=== PATIENT | female | born 1945 | race African-American/Black ===

== ENCOUNTER → 2017-03-10 | Outpatient (CLI) | payer OTHER ==
[2016-07-10 16:43] VITALS: BP 142/69
[~2017-03-10] MED LIST: NS 100 ML IV 100 ML IV ONE
[2017-03-10 10:11] LABS: CREATININE 0.77 mg/dL (0.55-1.02)
--- NOTE | 2017-03-10 12:01 | CT ---
HISTORY: Generalized abdominal pain. Study: CT abdomen and pelvis with and without contrast Comparison: MRI abdomen dated October 27, 2016. Technique: Multiple axial images of the abdomen and pelvis were obtained from the lung bases to the pubic symph ysis before and after the administration of IV contrast. Dose reduction techniques including Automa jase Exposure Control (AEC) and adjustment of mA and kV were utilized. Findings: Bibasilar scarring versus atelectasis. Otherwise, the visualized portions of the lung bases are unre markable. Multiple simple appearing liver cysts are again seen. Nonspecific calcification is seen w ithin the hepatic dome. Otherwise, the liver, spleen, pancreas, kidneys, and adrenal glands are unre markable in their CT appearance. The gallbladder is unremarkable in its CT appearance. No significa nt mesenteric lymphadenopathy or stranding can be observed. No free fluid or free air is seen withi n the abdomen. Scattered colonic diverticula without evidence of diverticulitis. The large and smal l bowel are otherwise unremarkable. The visualized appendix appears normal. The uterus and ovaries a re surgically absent. The urinary bladder is grossly unremarkable. The bony structures are grossly intact. IMPRESSION: No CT evidence of acute abdominal/pelvic pathology. Reported By:
== END ==
LOC: RAD 09:35
PROVIDERS: ATTEND Internal Medicine Gastroenterology
DX: R10.84 Generalized abdominal pain (principal)
CPT/HCPCS: 36415; 74178; 82565; 84520; A4222

== ENCOUNTER 2017-03-11 00:24 | Inpatient (IN) | payer OTHER ==
--- NOTE | 2017-03-11 00:41 | DR.GENAD ---
HPI - PCP Primary Care Physician: SOL - HPI Comment HPI Comment: PATIENT HAVE INCREASING LOWER ABDOMINAL PAIN THIS EVENING. SHE HAD ABDOMINAL CT DONE TODAY FOR ABDOMINAL PAIN CURRENTLY BEING INVESTIGATED. DENIES DYSURIA. TONIGHT LOWER ABDOMEN PAINFUL RADIATING TO VAGINAL AND RECTAL AREA. - Complaint/Symptoms Chief Complaint Doctors Comments: LOWER ABDOMINAL PAIN. Chief Complaint:: LOWER ABDOIMNAL PAIN - Nurses notes reviewed Nurses Notes Review: Yes - Source History Provided: Patient - Mode of Arrival Mode of Arrival: Ambulatory - Timing Onset of Chief Complaint: 03/04/17 Came on: Gradually - Duration Duration: Constant Duration: Days - Severity Severity: Moderate PMH - PMH Past Medical History: Yes Past Medical History: Coronary Artery Disease, Dyslipidemia, Hypertension Past Surgical History: Yes Surgical History: Angioplasty/Stents, Appendectomy, Hysterectomy, Other Past Surgical History Comment: EYE SURGERY LUMPECTOMY - Family History History of Family Medical Conditions: Yes Family Medical History: Diabetes Mellitus, Cancer, [place], Coronary Artery Disease - Social History Does patient currently use any type of tobacco product: No Have you used tobacco products in the last 12 months: No Type of Tobacco Use: None Does any household member use tobacco: No Alcohol Use: None Do you use any recreational Drugs:: No Lives With: Spouse Lives Where: Home - infectious screening In the last 2 months have you had wt loss of >10#?: NO Have you had fever, night sweats or hemotysis?: No Have you traveled outside the country in the last 6 months?: No Isolation: Standard ROS - Review of Systems Constitutional: Weakness, Fatigue, Loss of Appetite. negative: Chills, Fever Eyes: No Symptoms Reported. negative: Eye Pain, Discharge ENTM: No Symptoms Reported Respiratoy: No Symptoms Reported. negative: Productive Cough, Non-Productive Cough, Short of Breath, Wheezing, Hemoptysis Cardiovascular: No Symptoms Reported Gastrointestinal/Abdominal: Abdominal Pain, Nausea Genitourinary: No Symptoms Reported Neurological: No Symptoms Reported Musculoskeletal: Muscle Pain Integumentary: No Symptoms Reported Hematologic/Lymphatic: No Symptoms Reported Endocrine: No Symptoms Reported All Other Systems: Reviewed and Negative PE - Vital Signs Vitals: Temperature 97.8 F Pulse Rate 66 Respiratory Rate 16 Blood Pressure [Left Arm] 120/63 Blood Pressure [Right Arm] 142/69 Blood Pressure 133/60 O2 Sat by Pulse Oximetry 100 - General Limitations: No Limitations General Appearance: Alert - Head Head Exam: Normal Inspection - Eyes Eye exam: Normal Appearance - ENT ENT Exam: Normal External Ear Exam External Ear Exam: Normal External Inspection TM/Canal Exam: Bilateral Normal Nose Exam: Normal Nose Exam Mouth Exam: Normal Inspection Throat Exam: Normal Inspection - Neck Neck Exam: Normal Inspection - Chest Chest Inspection: Symmetric Chest Wall Rise - Respiratory Respiratory Exam: Normal Lung Sounds Bilat Respiratory Exam: Bilateral Rhonchi, Lower Rhonchi - Cardiovascular Cardiovascular Exam: Regular Rate, Normal Rhythm, Normal Heart Sounds - Abdominal Exam Abdominal Exam: Normal Bowel Sounds, Soft, Tenderness Abdominal Tenderness: RLQ, LLQ, Suprapubic - Extremities Extremities Exam: Normal Inspection [facility] - Additional Information Additional Information Obtained From: Family - Differential Diagnosis Differential Diagnosis: ABDOMINAL PAIN, CHEST PAIN, UTI, KIDNEY STONE, MUSCULOSKELETAL PAIN Course - Treatment Treatment: MED FOR PAIN IN ED. - Reevaluation 1st: Improved - Consultation Consultation Comments: DISCUSS PATIENT WITH DR. HORTON. HE WILL ADMIT PATIENT. - Education/Counseling Education/Counseling: Patient, Family, Counseling Educated On: Diagnosis ROR - Labs Reviewed Laboratory Results Reviewed?: Yes Result Diagrams: 03/11/17 01:38 03/11/17 01:38 Laboratory: WBC 8.2 X10^3/uL (3.6-10.0) 03/11/17 01:38 RBC 4.21 X10^6/uL (3.5-5.4) 03/11/17 01:38 Hgb 12.6 g/dL (12.0-16.0) 03/11/17 01:38 Hct 37.2 % (36.0-47.0) 03/11/17 01:38 MCV 88.3 fL (80.0-100.0) 03/11/17 01:38 MCH 30.0 pg (27.0-34.0) 03/11/17 01:38 MCHC 33.9 g/dL (33.0-35.0) 03/11/17 01:38 RDW 13.8 % (11.6-16.5) 03/11/17 01:38 Plt Count 181 X10^3/uL (150.0-450.0) 03/11/17 01:38 MPV 7.8 fL (7.4-11.0) 03/11/17 01:38 Neut % 64.7 % (42.0-75.0) 03/11/17 01:38 Lymph % 25.5 % (21.0-51.0) 03/11/17 01:38 [place] % 8.0 % (0.0-13.0) 03/11/17 01:38 Eos % 1.3 % (0.9-2.9) 03/11/17 01:38 Baso % 0.5 % (0.2-1.0) 03/11/17 01:38 Neut # 5.3 x10^3/uL (2.2-4.8) H 03/11/17 01:38 Lymph # 2.1 X10^3/uL (1.3-2.9) 03/11/17 01:38 [place] # 0.7 x10^3/uL (0.3-0.8) 03/11/17 01:38 Eos # 0.1 x10^3/uL (0.0-0.2) 03/11/17 01:38 Baso # 0.0 X10^3/uL (0.0-0.1) 03/11/17 01:38 Absolute Nucleated RBC 0.0 /100WBC 03/11/17 01:38 Sodium 141 mmol/L (136-145) 03/11/17 01:38 Corrected Sodium 142 mmol/L (136-145) 03/11/17 01:38 Potassium 3.8 mmol/L (3.5-5.1) 03/11/17 01:38 Chloride 107 mmol/L (98-107) 03/11/17 01:38 Carbon Dioxide 27.9 mmol/L (21-32) 03/11/17 01:38 BUN 17 mg/dL (7-18) 03/11/17 01:38 Creatinine 0.77 mg/dL (0.55-1.02) 03/11/17 01:38 Est GFR (MDRD) Af Amer > 60 (>60) 03/11/17 01:38 Est GFR (MDRD) Non-Af > 60 (>60) 03/11/17 01:38 Glucose 139 mg/dL (65-99) H 03/11/17 01:38 Calcium 8.4 mg/dL (8.5-10.1) L 03/11/17 01:38 Corrected Calcium 9.1 mg/dL (8.5-10.1) 03/11/17 01:38 Total Bilirubin 0.60 mg/dL (0.2-1.0) 03/11/17 01:38 AST 17 Units/L (15-37) 03/11/17 01:38 ALT 21 Units/L (12-78) 03/11/17 01:38 Alkaline Phosphatase 115 Units/L (46-116) 03/11/17 01:38 Total Protein 6.6 g/dL (6.4-8.2) 03/11/17 01:38 Albumin 3.1 g/dL (3.4-5.0) L 03/11/17 01:38 Globulin 3.5 g/dL (2.5-4.5) 03/11/17 01:38 Albumin/Globulin Ratio 0.9 Ratio (1.1-2.1) L 03/11/17 01:38 Specimen Type Clean catch urine 03/11/17 01:50 Urine Color Yellow (YELLOW) 03/11/17 01:50 Urine Appearance Slightly hazy (CLEAR) 03/11/17 01:50 Urine pH 5.0 (5.0 - 8.0) 03/11/17 01:50 Ur Specific [place] 1.020 (1.000-1.030) 03/11/17 01:50 Urine Protein 1+ (NEGATIVE) 03/11/17 01:50 Urine Glucose (UA) Negative (NEGATIVE) 03/11/17 01:50 Urine Ketones Negative (NEGATIVE) 03/11/17 01:50 Urine Occult Blood 2+ (NEGATIVE) 03/11/17 01:50 Urine Nitrite Negative (NEGATIVE) 03/11/17 01:50 Urine Bilirubin Negative (NEGATIVE) 03/11/17 01:50 Urine Urobilinogen 2+ (NORMAL) 03/11/17 01:50 Ur Leukocyte Esterase 1+ (NEGATIVE) 03/11/17 01:50 Urine RBC 0-3 /HPF (NEGATIVE) 03/11/17 01:50 Urine WBC 2-4 /HPF (NEGATIVE) 03/11/17 01:50 Ur Squamous Epith Cells Few /HPF (NEGATIVE) 03/11/17 01:50 Urine Bacteria 1+ /HPF (NEGATIVE) 03/11/17 01:50 Urine Mucus Moderate /HPF (NEGATIVE) 03/11/17 01:50 Ur Culture Indicated? No/not indicated 03/11/17 01:50 - XRAY XRAY Interpreted by: Radiologist XRAY Findings: REPORT DISCUSS WITH PATIENT. - Diagnosis Discharge Problem: Abdominal pain, UTI (urinary tract infection) - Discharge Plan Disposition: ADMITTED INPATIENT Condition: Stable - Follow ups/Referrals - Instructions
[2017-03-11] MEDS ORDERED: MORPHINE SULFATE INJ 2 MG IVP ONE (01:19)
[2017-03-11] MEDS ORDERED: ZOFRAN INJ 4 MG VIAL IVP ONE (01:19)
[2017-03-11 01:45] LABS: BASOPHILS % (AUTO) 0.5 % (0.2-1.0); EOSINOPHILS # (AUTO) 0.1 x10^3/uL (0.0-0.2); EOSINOPHILS % (AUTO) 1.3 % (0.9-2.9); HEMATOCRIT 37.2 % (36.0-47.0); HEMOGLOBIN 12.6 g/dL (12.0-16.0); LYMPHOCYTES # (AUTO) 2.1 X10^3/uL (1.3-2.9); LYMPHOCYTES % (AUTO) 25.5 % (21.0-51.0); MEAN CORPUSCULAR HGB CONC 33.9 g/dL (33.0-35.0); MEAN CORPUSCULAR VOLUME 88.3 fL (80.0-100.0); MEAN PLATELET VOLUME 7.8 fL (7.4-11.0); MONOCYTES # (AUTO) 0.7 x10^3/uL (0.3-0.8); NEUTROPHILS # (AUTO) 5.3 x10^3/uL (2.2-4.8); NEUTROPHILS % (AUTO) 64.7 % (42.0-75.0); PLATELET COUNT 181 X10^3/uL (150.0-450.0); RED BLOOD COUNT 4.21 X10^6/uL (3.5-5.4); RED CELL DISTRIBUTION WIDTH 13.8 % (11.6-16.5); WHITE BLOOD COUNT 8.2 X10^3/uL (3.6-10.0)
[2017-03-11] MEDS ORDERED: MORPHINE SULFATE INJ 2 MG ONE (01:54)
[2017-03-11] MEDS ORDERED: ZOFRAN INJ 4 MG VIAL ONE (01:54)
[2017-03-11 01:55] LABS: BILIRUBIN,URINE NEGATIVE (NEGATIVE); BLOOD/HEMOGLOBIN,URINE 2+ (NEGATIVE); GLUCOSE, URINE NEGATIVE (NEGATIVE); KETONES,URINE NEGATIVE (NEGATIVE); LEUKOCYTE ESTERASE ,URINE 1+ (NEGATIVE); NITRITES,URINE NEGATIVE (NEGATIVE); PROTEIN,URINE 1+ (NEGATIVE); UROBILINOGEN,URINE 2+ (NORMAL)
[2017-03-11 01:57] LABS: ALANINE AMINOTRANSFERASE 21 Units/L (12-78); ALBUMIN 3.1 g/dL (3.4-5.0); ALKALINE PHOSPHATASE 115 Units/L (46-116); ASPARTATE AMINO TRANSFERASE 17 Units/L (15-37); BLOOD UREA NITROGEN 17 mg/dL (7-18); CALCIUM 8.4 mg/dL (8.5-10.1); CARBON DIOXIDE 27.9 mmol/L (21-32); CHLORIDE 107 mmol/L (98-107); COR CA(FOR HYPOALB) 9.1 mg/dL (8.5-10.1); COR NA(FOR HYPERGLY) 142 mmol/L (136-145); CREATININE 0.77 mg/dL (0.55-1.02); GLUCOSE 139 mg/dL (65-99); SODIUM 141 mmol/L (136-145); TOTAL PROTEIN 6.6 g/dL (6.4-8.2); eGFR BLACK RACES > 60 (>60); eGFR NON BLACK RACES > 60 (>60)
[2017-03-11] MEDS: NS 1000 ML 1,000 ML IV SCH ×3 (01:59→20:36)
[2017-03-11 02:01] LABS: APPEARANCE,URINE SLIGHTLY HAZY (CLEAR); BACTERIA,URINE 1+ /HPF (NEGATIVE); COLOR,URINE YELLOW (YELLOW); MUCUS,URINE MODERATE /HPF (NEGATIVE); RBC,URINE 0-3 /HPF (NEGATIVE); SQUAMOUS EPITHELIAL CELL,UR FEW /HPF (NEGATIVE)
[2017-03-11] MEDS ORDERED: TORADOL 15 MG VIAL IVP ONE (03:31)
[2017-03-11] MEDS ORDERED: CIPRO IV 200 MG PREMIX* 200 MG/100 ML BAG IV ONE (03:32)
[2017-03-11] MEDS ORDERED: TORADOL 15 MG VIAL ONE (03:35)
[2017-03-11] MEDS ORDERED: PEPCID 20 MG IV PREMIX* 50 ML IV PRN (06:29)
[2017-03-11] MEDS ORDERED: ZOFRAN INJ 4 MG VIAL IVP PRN (06:32)
[2017-03-11] MEDS: PEPCID 20 MG IV PREMIX* 20 MG/50 ML BAG IV SCH ×2 (08:44→20:35)
[2017-03-11] MEDS: CIPRO IV 400 MG PREMIX* 400 MG/200 ML IV.SOLN. IV SCH ×2 (08:45→20:35)
[2017-03-11] MEDS ORDERED: CIPRO IV 200 MG PREMIX* 200 MG/100 ML BAG IV SCH (09:00)
[2017-03-11] MEDS: BENTYL CAP 10 MG PO SCH ×4 (11:08→20:36)
[2017-03-11] MEDS ORDERED: ROBITUSSIN DM PO PRN (15:11)
[2017-03-11] MEDS: MORPHINE SULFATE INJ 2 MG IVP PRN (22:27)
[2017-03-12] MEDS: MORPHINE SULFATE INJ 2 MG IVP PRN ×3 (03:35→16:55)
[2017-03-12] MEDS: NS 1000 ML 1,000 ML IV SCH ×2 (04:17→22:00)
[2017-03-12 05:03] LABS: ALANINE AMINOTRANSFERASE 17 Units/L (12-78); ALBUMIN 2.7 g/dL (3.4-5.0); ALKALINE PHOSPHATASE 91 Units/L (46-116); ASPARTATE AMINO TRANSFERASE 16 Units/L (15-37); BLOOD UREA NITROGEN 7 mg/dL (7-18); CALCIUM 8.3 mg/dL (8.5-10.1); CARBON DIOXIDE 25.2 mmol/L (21-32); CHLORIDE 111 mmol/L (98-107); COR CA(FOR HYPOALB) 9.3 mg/dL (8.5-10.1); CREATININE 0.76 mg/dL (0.55-1.02); GLUCOSE 91 mg/dL (65-99); SODIUM 144 mmol/L (136-145); TOTAL PROTEIN 5.9 g/dL (6.4-8.2); eGFR BLACK RACES > 60 (>60); eGFR NON BLACK RACES > 60 (>60)
[2017-03-12 05:20] LABS: BASOPHILS % (AUTO) 0.4 % (0.2-1.0); EOSINOPHILS # (AUTO) 0.1 x10^3/uL (0.0-0.2); EOSINOPHILS % (AUTO) 1.2 % (0.9-2.9); HEMATOCRIT 33.6 % (36.0-47.0); HEMOGLOBIN 11.6 g/dL (12.0-16.0); LYMPHOCYTES # (AUTO) 1.7 X10^3/uL (1.3-2.9); LYMPHOCYTES % (AUTO) 29.1 % (21.0-51.0); MEAN CORPUSCULAR HEMOGLOBIN 30.3 pg (27.0-34.0); MEAN CORPUSCULAR HGB CONC 34.6 g/dL (33.0-35.0); MEAN CORPUSCULAR VOLUME 87.5 fL (80.0-100.0); MEAN PLATELET VOLUME 8.2 fL (7.4-11.0); MONOCYTES # (AUTO) 0.6 x10^3/uL (0.3-0.8); MONOCYTES % (AUTO) 10.2 % (0.0-13.0); NEUTROPHILS # (AUTO) 3.5 x10^3/uL (2.2-4.8); NEUTROPHILS % (AUTO) 59.1 % (42.0-75.0); PLATELET COUNT 162 X10^3/uL (150.0-450.0); RED BLOOD COUNT 3.84 X10^6/uL (3.5-5.4); RED CELL DISTRIBUTION WIDTH 13.6 % (11.6-16.5); WHITE BLOOD COUNT 5.9 X10^3/uL (3.6-10.0)
[2017-03-12 06:27] LABS: ERYTHROCYTE SEDIMENTATION RATE 28 MM/HOUR (0-20)
[2017-03-12 07:50] VITALS: BMI 29.2
[2017-03-12] MEDS: PEPCID 20 MG IV PREMIX* 20 MG/50 ML BAG IV SCH ×2 (09:16→21:55)
[2017-03-12] MEDS: CIPRO IV 400 MG PREMIX* 400 MG/200 ML IV.SOLN. IV SCH ×2 (09:16→21:55)
[2017-03-12] MEDS: BENTYL CAP 10 MG PO SCH ×4 (09:16→21:56)
[2017-03-12] MEDS: ASPIRIN EC 81 MG PO SCH (11:39)
[2017-03-12] MEDS: SYNTHROID 75 mcg TAB PO SCH (11:40)
[2017-03-12] MEDS: PLAVIX PO SCH (11:40)
--- NOTE | 2017-03-12 12:20 | DR.H&P ---
H&P - History & Physical for Day of: H&P Date: 03/11/17 - Chief Complaint Chief Complaint: abdominal pain - Allergies Allergies/Adverse Reactions: Allergies Allergy/AdvReac Type Severity Reaction Status Date / Time Hydrocodone [From Tussionex] Allergy Verified 12/25/15 12:46 Phenyltoloxamine Allergy Verified 12/25/15 12:46 [From Tussionex] - History of Present Illness History of Present Illness: Patient presented to the emergency room with complaint of abdominal pain that started in the lower abdomen and is getting worse and radiating down to vagina and rectum, she had an abdominal ct prior to arrival. The Abdomen CT with and without contrast showed no abnormalities. Labs were normal with the exception of Neut# 5.3, Glucose 139, Calcium 8.4, Albumin 3.1, Albumin/Globulin Ratio 0.9. Urinalysis shows 2+ Bld, 2+ Urobilinogen, 1+ Leuk, 1+ Bacteria. Patient was admitted with diagnosis of Abdominal pain, UTI, and enteritis. Patient started on IVF Fluids and Cipro 400mg IV Q12hr, Pepcid 20mg IV BID and morphine for pain. We are going to add some bentyl and see if this will give her some relief and follow up in the am with labs. Vital Signs 97.6, 76, 18, 95% on RA, 114/54 - Past Medical History Past Medical History: Coronary Artery Disease, Dyslipidemia, Hypertension Additional Medical History: Hx Breast Cancer, Cataracts, Bronchitis, Pneumonia, Constipation, Prior Blood Transfusion - Past Surgical History Surgical History: Angioplasty/Stents, Appendectomy, Hysterectomy, Other Additional Surgical History: S/P Left Breast Lumpectomy, Tumor removed from stomach, x2 - Family History Family Medical History: Diabetes Mellitus, Cancer, [place], Coronary Artery Disease - Social History Does patient currently use any type of tobacco product: No Have you used tobacco products in the last 12 months: No Type of Tobacco Use: None Does any household member use tobacco: No Alcohol Use: None Drug Use: None - Medications Home Medications: Aspirin [Aspirin Adult Low Dose] 1 tab PO DAILY 03/11/17 [History Confirmed 04/20] Clopidogrel Bisulfate [Clopidogrel] 1 tab PO DAILY 03/11/17 [History Confirmed 03/11/17] Levothyroxine Sodium [SYNTHROID 75 mcg *] 1 tab PO DAILY 03/11/17 [History Confirmed 03/11/17] Rosuvastatin Calcium [Rosuvastatin Calcium] 1 tab PO HS 03/11/17 [History Confirmed 03/11/17] - Review of Systems Constitutional: No Symptoms Reported Eyes: No Symptoms Reported ENT: No Symptoms Reported Respiratory: No Symptoms Reported Cardiovascular: No Symptoms Reported Gastrointestinal: Nausea, Abdominal Pain Genitourinary: No Symptoms Reported Musculoskeletal: No Symptoms Reported Skin: No Symptoms Reported Neurological: No Symptoms Reported - Physical Exam Vital Signs: Vital Signs 97.6, 76, 18, 95% on RA, 114/54 Oriented: Normal Eyes: Normal Ear: Normal Nose: Normal Throat: Normal Respiratory: Clear Throughout Cardiovascular: Normal : Normal Auscultation: Bowel Sounds: Increased Palpation: Normal Tenderness: RLQ, LLQ Skin: Normal Musculoskeletal: Normal Psychiatric: Normal Mood Description: Calm, Appropriate Affect: Normal Speech Pattern: Clear, Appropriate - Assessment/Plan (1) Abdominal pain Qualifiers: Abdominal location: A Status: Acute Plan: Morphine and bentyl for pain, continue to monitor (2) UTI (urinary tract infection) Qualifiers: Urinary tract infection type: U Hematuria presence: H Indwelling urinary catheter type: I Encounter type: E Status: Acute Plan: Cipro 400mg IV Q12hr
--- NOTE | 2017-03-12 12:22 | PCM.PROG ---
Progress Note - Progress Note for Day of Date: 03/12/17 - Subjective Subjective: Patient is a 71yo black female who was admitted to the hospital with abdominal pain, UTI, and enteritis. Patient states she is feeling somewhat better this am but is still have a good bit of abdominal pain. Upon physical examination patient is noted to have tenderness of the lower abdomen. We are going to continue her on antibiotics and consult Dr. Thompson. Labs are within normal limits with the exception of Hgb 11.6, Hct 33.6, Chloride 111, Calcium 8.3, CRP 10.20, Total Protein 5.9, Albumin 2.7, Albumin/Globulin Ratio 0.8. Vital Signs 98.0, 57, 18, 97% on RA, 137/63 - Past Medical Family Social History Past Med/Fam/Surg Hx: No changes since H&P Allergies: Allergies Hydrocodone [From Tussionex] Allergy (Verified 12/25/15 12:46) Phenyltoloxamine [From Tussionex] Allergy (Verified 12/25/15 12:46) - Review of Systems ROS: No change since H&P - Vital Signs and I&O's Vital Signs: Vital Signs 98.0, 57, 18, 97% on RA, 137/63 Intake and Output: Intake & Output 03/10/17 03/11/17 03/12/17 03/13/17 11:59 11:59 11:59 11:59 Intake Total 2220 Balance 2220 - Physical Exam Oriented: Normal Eyes: Normal Ear: Normal Nose: Normal Throat: Normal Cardiovascular: Normal : Normal Auscultation: Bowel Sounds: Increased Tenderness: RLQ, LLQ Skin: Normal Musculoskeletal: Normal Psychiatric: Normal Mood Description: Calm, Appropriate Affect: Normal Speech Pattern: Clear, Appropriate - Laboratory and Diagnostics Result Diagrams: 03/12/17 03:50 03/12/17 03:50 Labs: Laboratory WBC 5.9 X10^3/uL (3.6-10.0) 03/12/17 03:50 RBC 3.84 X10^6/uL (3.5-5.4) 03/12/17 03:50 Hgb 11.6 g/dL (12.0-16.0) L 03/12/17 03:50 Hct 33.6 % (36.0-47.0) L 03/12/17 03:50 MCV 87.5 fL (80.0-100.0) 03/12/17 03:50 MCH 30.3 pg (27.0-34.0) 03/12/17 03:50 MCHC 34.6 g/dL (33.0-35.0) 03/12/17 03:50 RDW 13.6 % (11.6-16.5) 03/12/17 03:50 Plt Count 162 X10^3/uL (150.0-450.0) 03/12/17 03:50 MPV 8.2 fL (7.4-11.0) 03/12/17 03:50 Neut % 59.1 % (42.0-75.0) 03/12/17 03:50 Lymph % 29.1 % (21.0-51.0) 03/12/17 03:50 [place] % 10.2 % (0.0-13.0) 03/12/17 03:50 Eos % 1.2 % (0.9-2.9) 03/12/17 03:50 Baso % 0.4 % (0.2-1.0) 03/12/17 03:50 Neut # 3.5 x10^3/uL (2.2-4.8) 03/12/17 03:50 Lymph # 1.7 X10^3/uL (1.3-2.9) 03/12/17 03:50 [place] # 0.6 x10^3/uL (0.3-0.8) 03/12/17 03:50 Eos # 0.1 x10^3/uL (0.0-0.2) 03/12/17 03:50 Baso # 0.0 X10^3/uL (0.0-0.1) 03/12/17 03:50 Absolute Nucleated RBC 0.1 /100WBC 03/12/17 03:50 ESR 28 MM/HOUR (0-20) H 03/12/17 03:50 Sodium 144 mmol/L (136-145) 03/12/17 03:50 Corrected Sodium TNP 03/12/17 03:50 Potassium 3.9 mmol/L (3.5-5.1) 03/12/17 03:50 Chloride 111 mmol/L (98-107) H 03/12/17 03:50 Carbon Dioxide 25.2 mmol/L (21-32) 03/12/17 03:50 BUN 7 mg/dL (7-18) 03/12/17 03:50 Creatinine 0.76 mg/dL (0.55-1.02) 03/12/17 03:50 Est GFR (MDRD) Af Amer > 60 (>60) 03/12/17 03:50 Est GFR (MDRD) Non-Af > 60 (>60) 03/12/17 03:50 Glucose 91 mg/dL (65-99) 03/12/17 03:50 Calcium 8.3 mg/dL (8.5-10.1) L 03/12/17 03:50 Corrected Calcium 9.3 mg/dL (8.5-10.1) 03/12/17 03:50 Total Bilirubin 0.70 mg/dL (0.2-1.0) 03/12/17 03:50 AST 16 Units/L (15-37) 03/12/17 03:50 ALT 17 Units/L (12-78) 03/12/17 03:50 Alkaline Phosphatase 91 Units/L (46-116) 03/12/17 03:50 C-Reactive Protein 10.20 mg/L (0-3.0) H 03/12/17 03:50 Total Protein 5.9 g/dL (6.4-8.2) L 03/12/17 03:50 Albumin 2.7 g/dL (3.4-5.0) L 03/12/17 03:50 Globulin 3.2 g/dL (2.5-4.5) 03/12/17 03:50 Albumin/Globulin Ratio 0.8 Ratio (1.1-2.1) L 03/12/17 03:50 Specimen Type Clean catch urine 03/11/17 01:50 Urine Color Yellow (YELLOW) 03/11/17 01:50 Urine Appearance Slightly hazy (CLEAR) 03/11/17 01:50 Urine pH 5.0 (5.0 - 8.0) 03/11/17 01:50 Ur Specific [place] 1.020 (1.000-1.030) 03/11/17 01:50 Urine Protein 1+ (NEGATIVE) 03/11/17 01:50 Urine Glucose (UA) Negative (NEGATIVE) 03/11/17 01:50 Urine Ketones Negative (NEGATIVE) 03/11/17 01:50 Urine Occult Blood 2+ (NEGATIVE) 03/11/17 01:50 Urine Nitrite Negative (NEGATIVE) 03/11/17 01:50 Urine Bilirubin Negative (NEGATIVE) 03/11/17 01:50 Urine Urobilinogen 2+ (NORMAL) 03/11/17 01:50 Ur Leukocyte Esterase 1+ (NEGATIVE) 03/11/17 01:50 Urine RBC 0-3 /HPF (NEGATIVE) 03/11/17 01:50 Urine WBC 2-4 /HPF (NEGATIVE) 03/11/17 01:50 Ur Squamous Epith Cells Few /HPF (NEGATIVE) 03/11/17 01:50 Urine Bacteria 1+ /HPF (NEGATIVE) 03/11/17 01:50 Urine Mucus Moderate /HPF (NEGATIVE) 03/11/17 01:50 Ur Culture Indicated? No/not indicated 03/11/17 01:50 - Plan (1) Abdominal pain Status: Acute Qualifiers: Abdominal location: A Plan: Morphine and bentyl for pain, continue to monitor, consult irfan (2) UTI (urinary tract infection) Status: Acute Qualifiers: Urinary tract infection type: U Hematuria presence: H Indwelling urinary catheter type: I Encounter type: E Plan: Cipro 400mg IV Q12hr
[2017-03-12] MEDS ORDERED: DULCOLAX SUPPOSITORY 10 MG RECTAL ONE (21:00)
[2017-03-12] MEDS ORDERED: PATIENT'S HOME MEDICATION (Rosuvastatin Calcium [Rosuvastatin Calcium] 1 TAB) PO SCH (21:00)
[2017-03-12] MEDS: PATIENT'S HOME MEDICATION PO SCH (21:56)
[2017-03-12] MEDS: CRESTOR TAB 10 MG PO SCH (21:58)
[2017-03-13] MEDS: MORPHINE SULFATE INJ 2 MG IVP PRN ×2 (00:59→19:14)
[2017-03-13 06:18] LABS: BASOPHILS % (AUTO) 0.4 % (0.2-1.0); EOSINOPHILS # (AUTO) 0.1 x10^3/uL (0.0-0.2); HEMOGLOBIN 12.3 g/dL (12.0-16.0); LYMPHOCYTES # (AUTO) 1.9 X10^3/uL (1.3-2.9); LYMPHOCYTES % (AUTO) 26.2 % (21.0-51.0); MEAN CORPUSCULAR HEMOGLOBIN 30.3 pg (27.0-34.0); MEAN CORPUSCULAR HGB CONC 34.3 g/dL (33.0-35.0); MEAN CORPUSCULAR VOLUME 88.3 fL (80.0-100.0); MEAN PLATELET VOLUME 8.3 fL (7.4-11.0); MONOCYTES # (AUTO) 0.6 x10^3/uL (0.3-0.8); MONOCYTES % (AUTO) 7.9 % (0.0-13.0); NEUTROPHILS # (AUTO) 4.6 x10^3/uL (2.2-4.8); NEUTROPHILS % (AUTO) 64.5 % (42.0-75.0); PLATELET COUNT 178 X10^3/uL (150.0-450.0); RED BLOOD COUNT 4.07 X10^6/uL (3.5-5.4); RED CELL DISTRIBUTION WIDTH 13.9 % (11.6-16.5); WHITE BLOOD COUNT 7.2 X10^3/uL (3.6-10.0)
[2017-03-13 06:26] LABS: ALANINE AMINOTRANSFERASE 18 Units/L (12-78); ALBUMIN 2.9 g/dL (3.4-5.0); ALKALINE PHOSPHATASE 102 Units/L (46-116); ASPARTATE AMINO TRANSFERASE 19 Units/L (15-37); BLOOD UREA NITROGEN 6 mg/dL (7-18); CALCIUM 8.6 mg/dL (8.5-10.1); CARBON DIOXIDE 25.9 mmol/L (21-32); CHLORIDE 108 mmol/L (98-107); COR CA(FOR HYPOALB) 9.5 mg/dL (8.5-10.1); CREATININE 0.73 mg/dL (0.55-1.02); GLUCOSE 98 mg/dL (65-99); SODIUM 142 mmol/L (136-145); TOTAL PROTEIN 6.7 g/dL (6.4-8.2); eGFR BLACK RACES > 60 (>60); eGFR NON BLACK RACES > 60 (>60)
[2017-03-13 06:51] LABS: ERYTHROCYTE SEDIMENTATION RATE 35 MM/HOUR (0-20)
[2017-03-13] MEDS: NS 1000 ML 1,000 ML IV SCH ×2 (06:54→15:12)
[2017-03-13] MEDS ORDERED: PATIENT'S HOME MEDICATION PO SCH (09:00)
[2017-03-13] MEDS: CIPRO IV 400 MG PREMIX* 400 MG/200 ML IV.SOLN. IV SCH ×2 (09:15→22:09)
[2017-03-13] MEDS: MILK OF MAGNESIA PO PRN ×2 (09:15→15:12)
[2017-03-13] MEDS: COLACE CAP 100 MG PO SCH ×2 (09:15→22:06)
[2017-03-13] MEDS: PATIENT'S HOME MEDICATION PO SCH ×4 (09:17→22:10)
[2017-03-13] MEDS: PEPCID 20 MG IV PREMIX* 20 MG/50 ML BAG IV SCH ×2 (09:30→22:10)
[2017-03-13] MEDS: BENTYL CAP 10 MG PO SCH ×4 (09:30→22:07)
[2017-03-13] MEDS: SYNTHROID 75 mcg TAB PO SCH (12:04)
[2017-03-13] MEDS: ASPIRIN EC 81 MG PO SCH (12:05)
[2017-03-13] MEDS: PLAVIX PO SCH (12:05)
[2017-03-13] MEDS ORDERED: MIRALAX POWDER (1 DOSE 17GM) PO SCH (21:00)
[2017-03-13] MEDS: CRESTOR TAB 10 MG PO SCH (22:06)
[2017-03-14] MEDS: NS 1000 ML 1,000 ML IV SCH ×2 (04:40→04:41)
[2017-03-14 06:19] LABS: BASOPHILS % (AUTO) 0.2 % (0.2-1.0); EOSINOPHILS # (AUTO) 0.1 x10^3/uL (0.0-0.2); EOSINOPHILS % (AUTO) 1.1 % (0.9-2.9); HEMATOCRIT 34.3 % (36.0-47.0); HEMOGLOBIN 11.7 g/dL (12.0-16.0); LYMPHOCYTES # (AUTO) 1.8 X10^3/uL (1.3-2.9); LYMPHOCYTES % (AUTO) 23.1 % (21.0-51.0); MEAN CORPUSCULAR HEMOGLOBIN 30.2 pg (27.0-34.0); MEAN CORPUSCULAR HGB CONC 34.3 g/dL (33.0-35.0); MEAN PLATELET VOLUME 8.2 fL (7.4-11.0); MONOCYTES # (AUTO) 0.7 x10^3/uL (0.3-0.8); MONOCYTES % (AUTO) 9.2 % (0.0-13.0); NEUTROPHILS # (AUTO) 5.2 x10^3/uL (2.2-4.8); NEUTROPHILS % (AUTO) 66.4 % (42.0-75.0); PLATELET COUNT 171 X10^3/uL (150.0-450.0); RED CELL DISTRIBUTION WIDTH 13.5 % (11.6-16.5); WHITE BLOOD COUNT 7.9 X10^3/uL (3.6-10.0)
[2017-03-14 06:24] LABS: ALANINE AMINOTRANSFERASE 18 Units/L (12-78); ALBUMIN 2.9 g/dL (3.4-5.0); ALKALINE PHOSPHATASE 101 Units/L (46-116); ASPARTATE AMINO TRANSFERASE 17 Units/L (15-37); BLOOD UREA NITROGEN 7 mg/dL (7-18); CALCIUM 8.7 mg/dL (8.5-10.1); CARBON DIOXIDE 23.8 mmol/L (21-32); CHLORIDE 108 mmol/L (98-107); COR CA(FOR HYPOALB) 9.6 mg/dL (8.5-10.1); CREATININE 0.72 mg/dL (0.55-1.02); GLUCOSE 94 mg/dL (65-99); SODIUM 142 mmol/L (136-145); TOTAL PROTEIN 6.6 g/dL (6.4-8.2); eGFR BLACK RACES > 60 (>60); eGFR NON BLACK RACES > 60 (>60)
[2017-03-14] MEDS: BENTYL CAP 10 MG PO SCH (09:27)
[2017-03-14] MEDS: COLACE CAP 100 MG PO SCH (09:27)
[2017-03-14] MEDS: CIPRO IV 400 MG PREMIX* 400 MG/200 ML IV.SOLN. IV SCH (09:28)
[2017-03-14] MEDS: PATIENT'S HOME MEDICATION PO SCH ×3 (10:10→10:12)
[2017-03-14 12:40] VITALS: BP 148/67
--- NOTE | 2017-03-17 13:58 | PCM.PROG ---
Progress Note - Progress Note for Day of Date: 03/13/17 - Subjective Subjective: Patient is a 71 yo female who was admitted with diagnosis of abdominal pain, UTI and eneritis. Patient is still having a good bit of pain this am. Dr Thompson was consulted and recommended to continue with oral antibiotic of Cipro and scheduled for colonoscopy and a low residue diet as. We are going to give her Miralax 17gm at bedtime, Mom 30ml PO QID PRN and Colace 100mg PO BID for constipation and see if this well help with some of her abdominal pain. Vital signs this am are 98.7, 62, 18, 93% on RA and 118/56. Labs are within normal limits with the exception of ESR 35, Chloride 108, BUN 6 , CRP 34.80, Albumin 2.9 and Albumin/Globulin Ratio of 0.8. We are going to follow up with her in the am with repeat labs. - Past Medical Family Social History Past Med/Fam/Surg Hx: No changes since H&P Allergies: Allergies Hydrocodone [From Tussionex] Allergy (Verified 12/25/15 12:46) Phenyltoloxamine [From Tussionex] Allergy (Verified 12/25/15 12:46) - Review of Systems ROS: No change since H&P - Vital Signs and I&O's Vital Signs: 98.7, 62, 18, 93% on RA and 118/56 Intake and Output: Intake & Output 03/15/17 03/16/17 03/17/17 03/18/17 11:59 11:59 11:59 11:59 Intake Total 560 Balance 560 - Physical Exam Oriented: Normal Eyes: Normal Ear: Normal Nose: Normal Throat: Normal Cardiovascular: Normal : Normal Auscultation: Bowel Sounds: Normal Palpation: Other (distended) Tenderness: RLQ, LLQ Skin: Normal Musculoskeletal: Normal Psychiatric: Normal Mood Description: Calm, Appropriate Affect: Normal Speech Pattern: Clear, Appropriate - Laboratory and Diagnostics Result Diagrams: 03/14/17 03:45 03/14/17 03:45 Labs: Laboratory WBC 7.9 X10^3/uL (3.6-10.0) 03/14/17 03:45 RBC 3.90 X10^6/uL (3.5-5.4) 03/14/17 03:45 Hgb 11.7 g/dL (12.0-16.0) L 03/14/17 03:45 Hct 34.3 % (36.0-47.0) L 03/14/17 03:45 MCV 88.0 fL (80.0-100.0) 03/14/17 03:45 MCH 30.2 pg (27.0-34.0) 03/14/17 03:45 MCHC 34.3 g/dL (33.0-35.0) 03/14/17 03:45 RDW 13.5 % (11.6-16.5) 03/14/17 03:45 Plt Count 171 X10^3/uL (150.0-450.0) 03/14/17 03:45 MPV 8.2 fL (7.4-11.0) 03/14/17 03:45 Neut % 66.4 % (42.0-75.0) 03/14/17 03:45 Lymph % 23.1 % (21.0-51.0) 03/14/17 03:45 [place] % 9.2 % (0.0-13.0) 03/14/17 03:45 Eos % 1.1 % (0.9-2.9) 03/14/17 03:45 Baso % 0.2 % (0.2-1.0) 03/14/17 03:45 Neut # 5.2 x10^3/uL (2.2-4.8) H 03/14/17 03:45 Lymph # 1.8 X10^3/uL (1.3-2.9) 03/14/17 03:45 [place] # 0.7 x10^3/uL (0.3-0.8) 03/14/17 03:45 Eos # 0.1 x10^3/uL (0.0-0.2) 03/14/17 03:45 Baso # 0.0 X10^3/uL (0.0-0.1) 03/14/17 03:45 Absolute Nucleated RBC 0.0 /100WBC 03/14/17 03:45 ESR 35 MM/HOUR (0-20) H 03/13/17 04:05 Sodium 142 mmol/L (136-145) 03/14/17 03:45 Corrected Sodium TNP 03/14/17 03:45 Potassium 3.8 mmol/L (3.5-5.1) 03/14/17 03:45 Chloride 108 mmol/L (98-107) H 03/14/17 03:45 Carbon Dioxide 23.8 mmol/L (21-32) 03/14/17 03:45 BUN 7 mg/dL (7-18) 03/14/17 03:45 Creatinine 0.72 mg/dL (0.55-1.02) 03/14/17 03:45 Est GFR (MDRD) Af Amer > 60 (>60) 03/14/17 03:45 Est GFR (MDRD) Non-Af > 60 (>60) 03/14/17 03:45 Glucose 94 mg/dL (65-99) 03/14/17 03:45 Calcium 8.7 mg/dL (8.5-10.1) 03/14/17 03:45 Corrected Calcium 9.6 mg/dL (8.5-10.1) 03/14/17 03:45 Total Bilirubin 0.90 mg/dL (0.2-1.0) 03/14/17 03:45 AST 17 Units/L (15-37) 03/14/17 03:45 ALT 18 Units/L (12-78) 03/14/17 03:45 Alkaline Phosphatase 101 Units/L (46-116) 03/14/17 03:45 C-Reactive Protein 34.80 mg/L (0-3.0) H 03/13/17 04:05 Total Protein 6.6 g/dL (6.4-8.2) 03/14/17 03:45 Albumin 2.9 g/dL (3.4-5.0) L 03/14/17 03:45 Globulin 3.7 g/dL (2.5-4.5) 03/14/17 03:45 Albumin/Globulin Ratio 0.8 Ratio (1.1-2.1) L 03/14/17 03:45 Specimen Type Clean catch urine 03/11/17 01:50 Urine Color Yellow (YELLOW) 03/11/17 01:50 Urine Appearance Slightly hazy (CLEAR) 03/11/17 01:50 Urine pH 5.0 (5.0 - 8.0) 03/11/17 01:50 Ur Specific [place] 1.020 (1.000-1.030) 03/11/17 01:50 Urine Protein 1+ (NEGATIVE) 03/11/17 01:50 Urine Glucose (UA) Negative (NEGATIVE) 03/11/17 01:50 Urine Ketones Negative (NEGATIVE) 03/11/17 01:50 Urine Occult Blood 2+ (NEGATIVE) 03/11/17 01:50 Urine Nitrite Negative (NEGATIVE) 03/11/17 01:50 Urine Bilirubin Negative (NEGATIVE) 03/11/17 01:50 Urine Urobilinogen 2+ (NORMAL) 03/11/17 01:50 Ur Leukocyte Esterase 1+ (NEGATIVE) 03/11/17 01:50 Urine RBC 0-3 /HPF (NEGATIVE) 03/11/17 01:50 Urine WBC 2-4 /HPF (NEGATIVE) 03/11/17 01:50 Ur Squamous Epith Cells Few /HPF (NEGATIVE) 03/11/17 01:50 Urine Bacteria 1+ /HPF (NEGATIVE) 03/11/17 01:50 Urine Mucus Moderate /HPF (NEGATIVE) 03/11/17 01:50 Ur Culture Indicated? No/not indicated 03/11/17 01:50 - Plan (1) Abdominal pain Status: Acute Qualifiers: Abdominal location: A Plan: Miralax 17gm at bedtime, Mom 30ml PO QID PRN and Colace 100mg PO BID (2) UTI (urinary tract infection) Status: Acute Qualifiers: Urinary tract infection type: U Hematuria presence: H Indwelling urinary catheter type: I Encounter type: E Plan: Cipro 400mg IV Q12hr
== END 2017-03-14 16:15 | disposition home or self-care (01) | DRG 690 ==
LOC: ER 00:24 → MED/SURG 07:20 → OBSVTOIN 03-13 08:00
PROVIDERS: ADMIT Internal Medicine; ATTEND Internal Medicine
DX: N39.0 Urinary tract infection, site not specified (principal); R10.84 Generalized abdominal pain; I25.10 Atherosclerotic heart disease of native coronary artery without angina pectoris; E78.2 Mixed hyperlipidemia; I10 Essential (primary) hypertension; K52.89 Other specified noninfective gastroenteritis and colitis; K21.9 Gastro-esophageal reflux disease without esophagitis; K59.09 Other constipation; K30 Functional dyspepsia
CPT/HCPCS: 36415; 80053; 81001; 85025; 85652; 86140; 96365; 96367; 96374; 96375; 99284; A4222; S0028; G0378; J0744; J2270; J2405

== ENCOUNTER → 2017-03-20 | Outpatient (CLI) | payer OTHER ==
[2017-03-14 12:40] VITALS: BP 148/67
--- NOTE | 2017-03-20 12:49 | CT ---
HISTORY: Right flank pain, hematuria Study: CT abdomen pelvis without contrast Comparison: March 10, 2017 Technique: Axial non contrast images with coronal and sagittal reformats. Dose reduction procedures were used with MA/kv adjusted for body size. Findings: The lung bases are clear. The liver, spleen, adrenal glands, and pancreas are within normal limits t o the limitations of an unenhanced examination. Multiple benign appearing hepatic cysts are present. Benign hepatic calcification is present. There is a question of a tiny gallstone present. This coul d be confirmed or excluded sonographically. The kidneys are unobstructed and without stones. No uret eral calculi are identified. The appendix is surgically absent by history. Calcific atherosclerotic changes present in a nondilated abdominal aorta. No enlarged intraperitoneal or retroperitoneal lymp hadenopathy is identified. There are no findings suggestive of diverticulitis or colitis. A moderate ly large amount of stool is present throughout the colon. Examination of the pelvis demonstrated no evidence for pelvic masses, pelvic fluid, or pelvic lymphadenopathy. No bladder abnormality is ident ified. 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 No other significant skeletal abnormalities are identified with the exception of compression of the superior endplates of L4 and L5 both a which are old. IMPRESSION: No evidence for obstructing renal or ureteral calculi Possible cholelithiasis. Correlation with sonography is recommended. Superior endplate compressions L4 and L5, old Multiple benign hepatic cysts Reported By:
== END ==
LOC: RAD 11:21
PROVIDERS: ATTEND Internal Medicine
DX: R31.9 Hematuria, unspecified (principal); R10.84 Generalized abdominal pain
CPT/HCPCS: 74176

== ENCOUNTER → 2017-10-26 | Outpatient (CLI) | payer OTHER ==
--- NOTE | 2017-10-26 11:21 | MRI ---
HISTORY: Low back pain, radiating into bilateral lower extremities, history of breast cancer Study: MRI lumbar spine without contrast Comparison: CT lumbar spine performed on 11/27/2014 Technique: Multisequence, multiplanar imaging of the lumbar spine was performed without the administration of IV contrast. Findings: Imaging of the lumbar spine demonstrates normal vertebral alignment. There is no spondylolisthesis. T here are chronic compression fractures involving the L4 and L5 superior endplates with associated lar ge Schmorl's nodes. No acute or early subacute compression fracture is identified within the lumbar s pine. Multilevel disc desiccation is noted. There is mild loss of disc space height at the L2-L3 leve l. Mild degenerative endplate changes with associated very mild reactive edema are noted at the L2-L3 level as well. The conus terminates somewhat low at the L2-L3 level. Evaluation of the pre and parav ertebral soft tissues demonstrates a lobulated hepatic cyst within the right hepatic lobe. T12-L1: At the T12-L1 level there is a tiny right paracentral disc protrusion without canal stenosis or neuroforaminal compromise. L1-L2: At the L1-L2 level there is mild facet hypertrophy without canal stenosis or neuroforaminal co mpromise. L2-L3: At the L2-L3 level there is a very mild broad-based disc bulge as well as facet hypertrophy, r esulting in no significant canal stenosis or neuroforaminal compromise. L3-L4: At the L3-L4 level there is facet hypertrophy as well as mild broad-based disc ridging, result ing in minimal bilateral neuroforaminal compromise but no significant canal stenosis. L4-L5: At the L4-L5 level there is facet hypertrophy and minimal disc ridging, resulting in minimal n euroforaminal compromise on the right but no significant canal stenosis. L5-S1: At the L5-S1 level there is facet hypertrophy without significant canal stenosis or neuroforam inal compromise. IMPRESSION: 1. Multilevel very mild degenerative disc disease and multilevel facet hypertrophy, resulting in mini mal neuroforaminal compromise at the L3-L4 and L4-L5 levels. 2. Chronic compression deformities involving the L4 and L5 superior endplates. Reported By:
== END | disposition home or self-care (01) | DRG 552 ==
LOC: RAD 09:29
PROVIDERS: ATTEND Orthopaedic Surgery
DX: M47.22 Other spondylosis with radiculopathy, cervical region (principal); M51.36 Other intervertebral disc degeneration, lumbar region
CPT/HCPCS: 72148

== ENCOUNTER 2019-05-16 13:42 | Inpatient (IN) ==
[2019-05-16] MEDS ORDERED: TUSSIONEX PENNKINETIC SUSP PO PRN (15:06)
[2019-05-16 17:10] LABS: BASOPHILS % (AUTO) 0.5 % (0.2-1.0); EOSINOPHILS # (AUTO) 0.1 x10^3/uL (0.0-0.2); EOSINOPHILS % (AUTO) 2.2 % (0.9-2.9); HEMATOCRIT 40.5 % (36.0-47.0); HEMOGLOBIN 13.8 g/dL (12.0-16.0); LYMPHOCYTES # (AUTO) 1.7 X10^3/uL (1.3-2.9); LYMPHOCYTES % (AUTO) 30.8 % (21.0-51.0); MEAN CORPUSCULAR HEMOGLOBIN 30.5 pg (27.0-34.0); MEAN CORPUSCULAR VOLUME 89.7 fL (80.0-100.0); MEAN PLATELET VOLUME 7.3 fL (7.4-11.0); MONOCYTES # (AUTO) 0.4 x10^3/uL (0.3-0.8); MONOCYTES % (AUTO) 7.6 % (0.0-13.0); NEUTROPHILS # (AUTO) 3.2 x10^3/uL (2.2-4.8); NEUTROPHILS % (AUTO) 58.9 % (42.0-75.0); PLATELET COUNT 229 X10^3/uL (150.0-450.0); RED BLOOD COUNT 4.52 X10^6/uL (3.5-5.4); RED CELL DISTRIBUTION WIDTH 13.8 % (11.6-16.5); WHITE BLOOD COUNT 5.5 X10^3/uL (3.6-10.0)
[2019-05-16 17:26] LABS: ALANINE AMINOTRANSFERASE 15 Units/L (12-78); ALBUMIN 3.3 g/dL (3.4-5.0); ALKALINE PHOSPHATASE 104 Units/L (46-116); ASPARTATE AMINO TRANSFERASE 18 Units/L (15-37); BLOOD UREA NITROGEN 15 mg/dL (7-18); CALCIUM 8.8 mg/dL (8.5-10.1); CARBON DIOXIDE 27.5 mmol/L (21-32); CHLORIDE 106 mmol/L (98-107); COR CA(FOR HYPOALB) 9.4 mg/dL (8.5-10.1); COR NA(FOR HYPERGLY) 142 mmol/L (136-145); CREATININE 1.01 mg/dL (0.55-1.02); SODIUM 142 mmol/L (136-145); TOTAL PROTEIN 7.4 g/dL (6.4-8.2); eGFR NON BLACK RACES 57 (>60)
--- NOTE | 2019-05-16 18:15 | RAD ---
HISTORY: Pneumonia, cough Study: Two views of the chest Comparison: October 21, 2018 Findings: The trachea is midline. The cardiac silhouette is unremarkable. Atelectasis and/or infiltrate are noted within the left lower lobe. A small left-sided pleural effusion cannot be excluded. IMPRESSION: 1. Left basilar airspace disease as noted above. Reported By:
[2019-05-16] MEDS ORDERED: NS 1/2 1000 ML IV 1,000 ML ONE (18:25)
[2019-05-16] MEDS: ROBITUSSIN DM PO SCH ×2 (18:39→20:46)
[2019-05-16] MEDS: NS 1/2 1000 ML IV 1,000 ML IV SCH (18:39)
[2019-05-16] MEDS: DUONEB 0.5 MG/3 MG NEB SCH ×2 (19:20→21:06)
[2019-05-16] MEDS: LEVAQUIN PREMIX IV 750 MG 750 MG/150 ML BAG IV SCH (20:46)
[2019-05-17 01:00] VITALS: BMI 32.2
[2019-05-17] MEDS: NS 1/2 1000 ML IV 1,000 ML IV SCH ×3 (05:18→20:00)
[2019-05-17 05:43] LABS: BASOPHILS % (AUTO) 0.6 % (0.2-1.0); EOSINOPHILS # (AUTO) 0.1 x10^3/uL (0.0-0.2); EOSINOPHILS % (AUTO) 2.2 % (0.9-2.9); HEMATOCRIT 34.9 % (36.0-47.0); HEMOGLOBIN 12.2 g/dL (12.0-16.0); LYMPHOCYTES # (AUTO) 1.5 X10^3/uL (1.3-2.9); LYMPHOCYTES % (AUTO) 27.4 % (21.0-51.0); MEAN CORPUSCULAR HEMOGLOBIN 31.1 pg (27.0-34.0); MEAN CORPUSCULAR HGB CONC 34.9 g/dL (33.0-35.0); MEAN CORPUSCULAR VOLUME 89.2 fL (80.0-100.0); MEAN PLATELET VOLUME 7.6 fL (7.4-11.0); MONOCYTES # (AUTO) 0.7 x10^3/uL (0.3-0.8); MONOCYTES % (AUTO) 12.7 % (0.0-13.0); NEUTROPHILS # (AUTO) 3.2 x10^3/uL (2.2-4.8); NEUTROPHILS % (AUTO) 57.1 % (42.0-75.0); PLATELET COUNT 193 X10^3/uL (150.0-450.0); RED BLOOD COUNT 3.91 X10^6/uL (3.5-5.4); RED CELL DISTRIBUTION WIDTH 13.7 % (11.6-16.5); WHITE BLOOD COUNT 5.6 X10^3/uL (3.6-10.0)
[2019-05-17 05:57] LABS: ALANINE AMINOTRANSFERASE 11 Units/L (12-78); ALBUMIN 2.7 g/dL (3.4-5.0); ALKALINE PHOSPHATASE 91 Units/L (46-116); ASPARTATE AMINO TRANSFERASE 15 Units/L (15-37); BLOOD UREA NITROGEN 16 mg/dL (7-18); CALCIUM 8.1 mg/dL (8.5-10.1); CARBON DIOXIDE 23.8 mmol/L (21-32); CHLORIDE 108 mmol/L (98-107); COR CA(FOR HYPOALB) 9.1 mg/dL (8.5-10.1); CREATININE 0.78 mg/dL (0.55-1.02); SODIUM 142 mmol/L (136-145); TOTAL PROTEIN 6.2 g/dL (6.4-8.2); eGFR NON BLACK RACES > 60 (>60)
--- NOTE | 2019-05-17 06:08 | RAD ---
History: Shortness of breath Comparison: 05/16/2019. Findings: Cardiac silhouette and pulmonary vasculature are within normal limits. Lungs are clear. No pneumothorax or pleural effusion. No acute osseous findings. Conclusion: No acute chest findings. Reported By:
[2019-05-17] MEDS: DUONEB 0.5 MG/3 MG NEB SCH ×4 (08:56→20:44)
[2019-05-17] MEDS: SINGULAIR TAB 10 MG PO SCH (09:12)
[2019-05-17] MEDS: ROBITUSSIN DM PO SCH ×4 (09:12→22:00)
[2019-05-17] MEDS: PROTONIX TAB 40 MG PO SCH (09:12)
[2019-05-17] MEDS: LEVAQUIN PREMIX IV 750 MG 750 MG/150 ML BAG IV SCH (09:12)
[2019-05-17] MEDS: PLAVIX PO SCH (09:13)
[2019-05-17] MEDS: ZANTAC PO SCH ×2 (09:14→21:45)
[2019-05-17] MEDS: AZILSARTAN MEDOXOMIL 80 MG PO SCH (09:15)
[2019-05-17] MEDS ORDERED: NS 1/2 1000 ML IV 1,000 ML ONE (09:17)
[2019-05-17] MEDS: SYNTHROID 75 mcg TAB PO SCH (09:18)
--- NOTE | 2019-05-17 10:18 | DR.UPDATE ---
H&P Update History and Physical Update: History and Physical reviewed and patient examined. Changes noted: Yes with the following: PRESENTED TO THE OFFICE TODAY DUE TO COMPLAINTS OF PERSISTENT, PRODUCTIVE COUGH X 3 WEEKS. SHE REPORTS RECEIVING TWO INJECTIONS OF SOLU-MEDROL, AND THREE INJECTIONS OF ROCEPHIN IN THE OFFICE WITHOUT IMPROVEMENT IN SYMPTOMS. WE ADMITTED PATIENT FOR FURTHER EVALUATION AND TREATMENT OF COMMUNITY AQUIRED PNEUMONIA. ON ADMISSION, TO THE HOSPITAL, VITALS WERE 97.0-88-20-96%-167/74. LABS WERE OBTAINED. ABNORMAL LAB VALUES INCLUDE THE FOLLOWING: GLUCOSE 111, ALBUMIN 3.3. BLOOD CULTURES AND SPUTUM CULTURES WERE OBTAINED. A CHEST XRAY WAS OBTAINED AND REVEALED: LEFT BASILAR AIRSPACE DISEASE. SHE WILL BE STARTED ON THE PNEUMONIA PROTOCOL WITH LEVAQUIN 750MG IV DAILY, RESPIRATORY TREATMENTS, SUPPLEMENTAL OXYGEN, AND 1/2NS AT 75ML/HR. OTHERWISE, WE PLAN TO FOLLOW UP WITH AM LABS AND CHEST XRAY AND CONTINUE TO MONITOR.
--- NOTE | 2019-05-17 19:44 | PCM.PROG ---
Progress Note - Progress Note for Day of Date of Exam: 05/17/19 - Subjective Subjective: IS A 73 YEAR OLD PATIENT OF OURS WHO WAS ADMITTED FOR COMMUNITY ACQUIRED PNEUMONIA, FAILED OUTPATIENT TREATMENT. TODAY, SHE IS ALERT AND ORIENTED, LYING IN BED ON MORNING ROUNDS. SHE CONTINUE WITH COMPLAINTS OF A PRODUCTIVE COUGH AND SHORTNESS OF BREATH. ON EXAMINATION, BILATERAL LUNGS ARE NOTED WITH SCATTERED WHEEZING AND RHONCHI THROUGHOUT. ABDOMEN IS ROUND, SOFT, AND NON-TENDER WITH NORMAL BOWEL SOUNDS NOTED IN ALL QUADRANTS. HER VITALS THIS MORNING ARE: 98.3-75-20-97%-136/63. LABS WERE OBTAINED. ABNORMAL LAB VALUES INCLUDE THE FOLLOWING: GLUCOSE 111, ALBUMIN 3.3. SPUTUM AND BLOOD CULTURES ARE PENDING. A CHEST XRAY WAS OBTAINED AND REVEALED NO ACUTE CHEST FINDINGS. SHE IS CURRENTLY RECEIVING LEVAQUIN 750MG IV DAILY, RESPIRATORY TREATMENTS, AND SUPPLEMENTAL OXYGEN. WE WILL CONTINUE WITH CURRENT PLAN FO CARE AND RESUME HOME MEDICATIONS TODAY. OTHERWISE, WE PLAN TO FOLLOW UP WITH AM LABS AND XRAY AND CONTINUE TO MONITOR. - Past Medical Family Social History Past Med/Fam/Surg Hx: No changes since H&P Allergies: Allergies hydrocodone Allergy (Unknown, Verified 05/17/19 01:05) From Tussionex phenyltoloxamine Allergy (Unknown, Verified 05/17/19 01:05) From Tussionex - Review of Systems ROS: No change since H&P - Vital Signs and I&O's Vital Signs: Temperature 98.1 F Pulse Rate [Right Posterior 87 Tibial] Pulse Rate [Left Radial] 85 Pulse Rate 88 Respiratory Rate 18 Blood Pressure [Right Calf] 137/67 Blood Pressure [Left Arm] 167/74 Blood Pressure [Right Arm] 156/68 Blood Pressure 148/67 O2 Sat by Pulse Oximetry 96 Intake and Output: Intake & Output 05/15/19 05/16/19 05/17/19 05/18/19 11:59 11:59 11:59 11:59 Intake Total 1228 / 1228 700 / 700 Balance 1228 / 1228 700 / 700 - Physical Exam Oriented: Normal Eyes: Normal Ear: Normal Nose: Normal Throat: Normal Respiratory: Generalized, Wheezes, Rhonchi Cardiovascular: Normal : Normal Auscultation: Bowel Sounds: Normal Palpation: Normal Tenderness: Normal Skin: Normal Musculoskeletal: Normal Psychiatric: Normal Mood Description: Calm Affect: Normal Speech Pattern: Clear, Appropriate - Laboratory and Diagnostics Result Diagrams: 05/17/19 05:21 05/17/19 05:21 Labs: 05/16/19 21:10 Sputum - Expectorated Sputum - Final Laboratory WBC 5.6 X10^3/uL (3.6-10.0) 05/17/19 05:21 RBC 3.91 X10^6/uL (3.5-5.4) 05/17/19 05:21 Hgb 12.2 g/dL (12.0-16.0) 05/17/19 05:21 Hct 34.9 % (36.0-47.0) L 05/17/19 05:21 MCV 89.2 fL (80.0-100.0) 05/17/19 05:21 MCH 31.1 pg (27.0-34.0) 05/17/19 05:21 MCHC 34.9 g/dL (33.0-35.0) 05/17/19 05:21 RDW 13.7 % (11.6-16.5) 05/17/19 05:21 Plt Count 193 X10^3/uL (150.0-450.0) 05/17/19 05:21 MPV 7.6 fL (7.4-11.0) 05/17/19 05:21 Neut % (Auto) 57.1 % (42.0-75.0) 05/17/19 05:21 Lymph % (Auto) 27.4 % (21.0-51.0) 05/17/19 05:21 [place] % (Auto) 12.7 % (0.0-13.0) 05/17/19 05:21 Eos % (Auto) 2.2 % (0.9-2.9) 05/17/19 05:21 Baso % (Auto) 0.6 % (0.2-1.0) 05/17/19 05:21 Neut # (Auto) 3.2 x10^3/uL (2.2-4.8) 05/17/19 05:21 Lymph # (Auto) 1.5 X10^3/uL (1.3-2.9) 05/17/19 05:21 [place] # (Auto) 0.7 x10^3/uL (0.3-0.8) 05/17/19 05:21 Eos # (Auto) 0.1 x10^3/uL (0.0-0.2) 05/17/19 05:21 Baso # (Auto) 0.0 X10^3/uL (0.0-0.1) 05/17/19 05:21 Absolute Nucleated RBC 0.1 /100WBC 05/17/19 05:21 Sodium 142 mmol/L (136-145) 05/17/19 05:21 Corrected Sodium TNP 05/17/19 05:21 Potassium 4.0 mmol/L (3.5-5.1) 05/17/19 05:21 Chloride 108 mmol/L (98-107) H 05/17/19 05:21 Carbon Dioxide 23.8 mmol/L (21-32) 05/17/19 05:21 BUN 16 mg/dL (7-18) 05/17/19 05:21 Creatinine 0.78 mg/dL (0.55-1.02) 05/17/19 05:21 Est GFR (MDRD) Af Amer > 60 (>60) 05/17/19 05:21 Est GFR (MDRD) Non-Af > 60 (>60) 05/17/19 05:21 Glucose 94 mg/dL (65-99) 05/17/19 05:21 Calcium 8.1 mg/dL (8.5-10.1) L 05/17/19 05:21 Corrected Calcium 9.1 mg/dL (8.5-10.1) 05/17/19 05:21 Total Bilirubin 0.40 mg/dL (0.2-1.0) 05/17/19 05:21 AST 15 Units/L (15-37) 05/17/19 05:21 ALT 11 Units/L (12-78) L 05/17/19 05:21 Alkaline Phosphatase 91 Units/L (46-116) 05/17/19 05:21 Total Protein 6.2 g/dL (6.4-8.2) L 05/17/19 05:21 Albumin 2.7 g/dL (3.4-5.0) L 05/17/19 05:21 Globulin 3.5 g/dL (2.5-4.5) 05/17/19 05:21 Albumin/Globulin Ratio 0.8 Ratio (1.1-2.1) L 05/17/19 05:21 - Plan (1) Community acquired pneumonia Status: Acute Qualifiers: Laterality: left Lung location: lower lobe of lung Qualified Code(s): J18.1 - Lobar pneumonia, unspecified organism Plan: IV LEVAQUIN, RESPIRATORY TREATMENTS, SUPPLEMENTAL OXYGEN, CONTINUE TO MONITOR
[2019-05-17] MEDS: ASPIRIN EC 81 MG PO SCH (21:45)
[2019-05-18] MEDS ORDERED: NS 1/2 1000 ML IV 1,000 ML ONE ×2 (05:13→20:01)
[2019-05-18 05:24] LABS: BASOPHILS % (AUTO) 0.3 % (0.2-1.0); EOSINOPHILS # (AUTO) 0.1 x10^3/uL (0.0-0.2); EOSINOPHILS % (AUTO) 2.3 % (0.9-2.9); HEMOGLOBIN 12.2 g/dL (12.0-16.0); LYMPHOCYTES # (AUTO) 1.6 X10^3/uL (1.3-2.9); LYMPHOCYTES % (AUTO) 28.5 % (21.0-51.0); MEAN CORPUSCULAR HEMOGLOBIN 30.8 pg (27.0-34.0); MEAN CORPUSCULAR VOLUME 90.6 fL (80.0-100.0); MEAN PLATELET VOLUME 7.6 fL (7.4-11.0); MONOCYTES # (AUTO) 0.7 x10^3/uL (0.3-0.8); MONOCYTES % (AUTO) 11.8 % (0.0-13.0); NEUTROPHILS # (AUTO) 3.3 x10^3/uL (2.2-4.8); NEUTROPHILS % (AUTO) 57.1 % (42.0-75.0); PLATELET COUNT 217 X10^3/uL (150.0-450.0); RED BLOOD COUNT 3.97 X10^6/uL (3.5-5.4); RED CELL DISTRIBUTION WIDTH 13.8 % (11.6-16.5); WHITE BLOOD COUNT 5.8 X10^3/uL (3.6-10.0)
[2019-05-18] MEDS: NS 1/2 1000 ML IV 1,000 ML IV SCH ×2 (05:25→20:07)
[2019-05-18] MEDS ORDERED: TYLENOL 325 MG TAB PO PRN (05:34)
[2019-05-18 05:38] LABS: ALANINE AMINOTRANSFERASE 11 Units/L (12-78); ALBUMIN 2.8 g/dL (3.4-5.0); ALKALINE PHOSPHATASE 100 Units/L (46-116); ASPARTATE AMINO TRANSFERASE 16 Units/L (15-37); BLOOD UREA NITROGEN 10 mg/dL (7-18); CALCIUM 8.2 mg/dL (8.5-10.1); CARBON DIOXIDE 23.4 mmol/L (21-32); CHLORIDE 110 mmol/L (98-107); COR CA(FOR HYPOALB) 9.2 mg/dL (8.5-10.1); CREATININE 0.74 mg/dL (0.55-1.02); SODIUM 142 mmol/L (136-145); TOTAL PROTEIN 6.4 g/dL (6.4-8.2); eGFR NON BLACK RACES > 60 (>60)
--- NOTE | 2019-05-18 06:18 | RAD ---
HISTORY: Shortness of breath Study: Chest AP portable Comparison: 05/17/2019 Findings: The heart is mildly enlarged. No congestive heart failure is noted. A coronary artery stent is visible. The pol[place] are normal. The lungs are free of acute alveolar infiltrates. No pleural effusions are identified. The bony thorax is unremarkable. IMPRESSION: Mild cardiomegaly without congestive heart failure Lungs clear Reported By:
[2019-05-18] MEDS: SYNTHROID 75 mcg TAB PO SCH (06:33)
[2019-05-18] MEDS: DUONEB 0.5 MG/3 MG NEB SCH (08:30)
[2019-05-18] MEDS: ROBITUSSIN DM PO SCH ×4 (09:08→20:07)
[2019-05-18] MEDS: PLAVIX PO SCH (09:08)
[2019-05-18] MEDS: SINGULAIR TAB 10 MG PO SCH (09:08)
[2019-05-18] MEDS: LEVAQUIN PREMIX IV 750 MG 750 MG/150 ML BAG IV SCH (09:08)
[2019-05-18] MEDS: PROTONIX TAB 40 MG PO SCH (09:08)
[2019-05-18] MEDS: AZILSARTAN MEDOXOMIL 80 MG PO SCH (09:09)
[2019-05-18] MEDS: XOPENEX 1.25 MG/3 ML NEBULE NEB SCH ×4 (12:00→20:19)
[2019-05-18] MEDS: Atrovent NEB TX 0.02% NEB SCH ×3 (12:00→20:19)
[2019-05-18] MEDS ORDERED: PHARMACY CONSULT - DOSE _____ XX SCH (13:00)
[2019-05-18] MEDS: ZANTAC PO SCH (20:07)
[2019-05-18] MEDS: ASPIRIN EC 81 MG PO SCH (20:07)
[2019-05-18] MEDS ORDERED: CRESTOR TAB 10 MG PO SCH (21:00)
[2019-05-19] MEDS: NS 1/2 1000 ML IV 1,000 ML IV SCH ×3 (00:50→14:49)
[2019-05-19] MEDS ORDERED: NS 1/2 1000 ML IV 0 ML ONE (05:17)
[2019-05-19 05:19] LABS: BASOPHILS % (AUTO) 0.5 % (0.2-1.0); EOSINOPHILS # (AUTO) 0.2 x10^3/uL (0.0-0.2); EOSINOPHILS % (AUTO) 3.1 % (0.9-2.9); HEMATOCRIT 36.3 % (36.0-47.0); HEMOGLOBIN 12.3 g/dL (12.0-16.0); LYMPHOCYTES # (AUTO) 1.7 X10^3/uL (1.3-2.9); LYMPHOCYTES % (AUTO) 29.8 % (21.0-51.0); MEAN CORPUSCULAR HEMOGLOBIN 30.4 pg (27.0-34.0); MEAN CORPUSCULAR HGB CONC 33.9 g/dL (33.0-35.0); MEAN CORPUSCULAR VOLUME 89.8 fL (80.0-100.0); MEAN PLATELET VOLUME 7.4 fL (7.4-11.0); MONOCYTES # (AUTO) 0.6 x10^3/uL (0.3-0.8); MONOCYTES % (AUTO) 10.2 % (0.0-13.0); NEUTROPHILS # (AUTO) 3.3 x10^3/uL (2.2-4.8); NEUTROPHILS % (AUTO) 56.4 % (42.0-75.0); PLATELET COUNT 217 X10^3/uL (150.0-450.0); RED BLOOD COUNT 4.04 X10^6/uL (3.5-5.4); RED CELL DISTRIBUTION WIDTH 13.9 % (11.6-16.5); WHITE BLOOD COUNT 5.8 X10^3/uL (3.6-10.0)
[2019-05-19 05:37] LABS: ALANINE AMINOTRANSFERASE 12 Units/L (12-78); ALBUMIN 2.8 g/dL (3.4-5.0); ALKALINE PHOSPHATASE 109 Units/L (46-116); ASPARTATE AMINO TRANSFERASE 14 Units/L (15-37); BLOOD UREA NITROGEN 8 mg/dL (7-18); CALCIUM 8.3 mg/dL (8.5-10.1); CARBON DIOXIDE 22.4 mmol/L (21-32); CHLORIDE 110 mmol/L (98-107); COR CA(FOR HYPOALB) 9.3 mg/dL (8.5-10.1); CREATININE 0.69 mg/dL (0.55-1.02); SODIUM 143 mmol/L (136-145); TOTAL PROTEIN 6.5 g/dL (6.4-8.2); eGFR NON BLACK RACES > 60 (>60)
[2019-05-19] MEDS: SYNTHROID 75 mcg TAB PO SCH (06:00)
--- NOTE | 2019-05-19 06:04 | RAD ---
Chest radiograph, single view. History: Shortness of breath Comparison: 05/18/2019. Findings: There is stable cardiomegaly and mild chronic interstitial lung changes. There is no new consolidation. No sizable pleural effusion or pneumothorax. Conclusion: Stable examination without acute chest process. Reported By:
[2019-05-19] MEDS: SINGULAIR TAB 10 MG PO SCH (08:29)
[2019-05-19] MEDS: PLAVIX PO SCH (08:29)
[2019-05-19] MEDS: ROBITUSSIN DM PO SCH ×4 (08:29→20:18)
[2019-05-19] MEDS: PROTONIX TAB 40 MG PO SCH (08:29)
[2019-05-19] MEDS: LEVAQUIN PREMIX IV 750 MG 750 MG/150 ML BAG IV SCH (08:29)
[2019-05-19] MEDS: AZILSARTAN MEDOXOMIL 80 MG PO SCH (08:30)
[2019-05-19] MEDS: Atrovent NEB TX 0.02% NEB SCH ×4 (08:56→20:35)
[2019-05-19] MEDS: XOPENEX 1.25 MG/3 ML NEBULE NEB SCH ×4 (08:56→20:35)
[2019-05-19] MEDS ORDERED: NS 1/2 1000 ML IV 1,000 ML ONE ×2 (14:05→20:10)
--- NOTE | 2019-05-19 17:41 | PCM.PROG ---
Progress Note - Progress Note for Day of Date of Exam: 05/18/19 - Subjective Subjective: IS A 73 YEAR OLD PATIENT OF OURS WHO WAS ADMITTED FOR COMMUNITY ACQUIRED PNEUMONIA, FAILED OUTPATIENT TREATMENT. TODAY, SHE IS ALERT AND ORIENTED, LYING IN BED ON MORNING ROUNDS. SHE CONTINUE WITH COMPLAINTS OF A PRODUCTIVE COUGH AND SHORTNESS OF BREATH. ON EXAMINATION, BILATERAL LUNGS ARE NOTED WITH SCATTERED WHEEZING AND RHONCHI THROUGHOUT. ABDOMEN IS ROUND, SOFT, AND NON-TENDER WITH NORMAL BOWEL SOUNDS NOTED IN ALL QUADRANTS. HER VITALS THIS MORNING ARE: 98.3-73-18-97%-144/73. LABS WERE OBTAINED. ABNORMAL LAB VALUES INCLUDE THE FOLLOWING: CHLORIDE 110, GLUCOSE 102, CALCIUM 8.2, AST 11, ALBUMIN 2.8. BLOOD AND SPUTUM CULTURES ARE PENDING. A CHEST XRAY WAS OBTAINED AND REVEA LED: Mild cardiomegaly without congestive heart failure. Lungs clear. WE WILL CONTINUE WITH CURRENT PLAN OF CARE TODAY AND START THE SMARTVEST. OTHERWISE, WE PLAN TO FOLLOW UP WITH AM LABS AND XRAY AND CONTINUE TO MONITOR. - Past Medical Family Social History Past Med/Fam/Surg Hx: No changes since H&P Allergies: Allergies hydrocodone Allergy (Unknown, Verified 05/17/19 01:05) From Tussionex phenyltoloxamine Allergy (Unknown, Verified 05/17/19 01:05) From Tussionex - Review of Systems ROS: No change since H&P - Vital Signs and I&O's Vital Signs: Temperature 98.6 F Pulse Rate [Left Posterior 78 Tibial] Pulse Rate [Right Posterior 72 Tibial] Pulse Rate [Left Radial] 85 Pulse Rate 73 Respiratory Rate 20 Blood Pressure [Left Calf] 170/93 Blood Pressure [Right Calf] 175/75 Blood Pressure [Left Arm] 167/74 Blood Pressure [Right Arm] 156/68 Blood Pressure 148/67 O2 Sat by Pulse Oximetry 93 Intake and Output: Intake & Output 05/17/19 05/18/19 05/19/19 05/20/19 11:59 11:59 11:59 11:59 Intake Total 1228 / 1228 1700 / 1700 1180 / 1180 720 / 720 Balance 1228 / 1228 1700 / 1700 1180 / 1180 720 / 720 - Physical Exam Oriented: Normal Eyes: Normal Ear: Normal Nose: Normal Throat: Normal Respiratory: Generalized, Wheezes, Rhonchi Cardiovascular: Normal : Normal Auscultation: Bowel Sounds: Normal Tenderness: Normal Skin: Normal Musculoskeletal: Normal Psychiatric: Normal Mood Description: Calm Affect: Normal Speech Pattern: Clear, Appropriate - Laboratory and Diagnostics Result Diagrams: 05/19/19 04:50 05/19/19 04:58 Labs: 05/16/19 21:10 Sputum - Expectorated Sputum Sputum Culture - Final 05/16/19 21:10 Sputum - Expectorated Sputum - Final 05/16/19 17:03 Blood Blood Culture - Preliminary 05/16/19 18:04 Blood Blood Culture - Preliminary Laboratory WBC 5.8 X10^3/uL (3.6-10.0) 05/19/19 04:50 RBC 4.04 X10^6/uL (3.5-5.4) 05/19/19 04:50 Hgb 12.3 g/dL (12.0-16.0) 05/19/19 04:50 Hct 36.3 % (36.0-47.0) 05/19/19 04:50 MCV 89.8 fL (80.0-100.0) 05/19/19 04:50 MCH 30.4 pg (27.0-34.0) 05/19/19 04:50 MCHC 33.9 g/dL (33.0-35.0) 05/19/19 04:50 RDW 13.9 % (11.6-16.5) 05/19/19 04:50 Plt Count 217 X10^3/uL (150.0-450.0) 05/19/19 04:50 MPV 7.4 fL (7.4-11.0) 05/19/19 04:50 Neut % (Auto) 56.4 % (42.0-75.0) 05/19/19 04:50 Lymph % (Auto) 29.8 % (21.0-51.0) 05/19/19 04:50 [place] % (Auto) 10.2 % (0.0-13.0) 05/19/19 04:50 Eos % (Auto) 3.1 % (0.9-2.9) H 05/19/19 04:50 Baso % (Auto) 0.5 % (0.2-1.0) 05/19/19 04:50 Neut # (Auto) 3.3 x10^3/uL (2.2-4.8) 05/19/19 04:50 Lymph # (Auto) 1.7 X10^3/uL (1.3-2.9) 05/19/19 04:50 [place] # (Auto) 0.6 x10^3/uL (0.3-0.8) 05/19/19 04:50 Eos # (Auto) 0.2 x10^3/uL (0.0-0.2) 05/19/19 04:50 Baso # (Auto) 0.0 X10^3/uL (0.0-0.1) 05/19/19 04:50 Absolute Nucleated RBC 0.0 /100WBC 05/19/19 04:50 Sodium 143 mmol/L (136-145) 05/19/19 04:58 Corrected Sodium TNP 05/19/19 04:58 Potassium 3.8 mmol/L (3.5-5.1) 05/19/19 04:58 Chloride 110 mmol/L (98-107) H 05/19/19 04:58 Carbon Dioxide 22.4 mmol/L (21-32) 05/19/19 04:58 BUN 8 mg/dL (7-18) 05/19/19 04:58 Creatinine 0.69 mg/dL (0.55-1.02) 05/19/19 04:58 Est GFR (MDRD) Af Amer > 60 (>60) 05/19/19 04:58 Est GFR (MDRD) Non-Af > 60 (>60) 05/19/19 04:58 Glucose 109 mg/dL (65-99) H 05/19/19 04:58 Calcium 8.3 mg/dL (8.5-10.1) L 05/19/19 04:58 Corrected Calcium 9.3 mg/dL (8.5-10.1) 05/19/19 04:58 Total Bilirubin 0.40 mg/dL (0.2-1.0) 05/19/19 04:58 AST 14 Units/L (15-37) L 05/19/19 04:58 ALT 12 Units/L (12-78) 05/19/19 04:58 Alkaline Phosphatase 109 Units/L (46-116) 05/19/19 04:58 Total Protein 6.5 g/dL (6.4-8.2) 05/19/19 04:58 Albumin 2.8 g/dL (3.4-5.0) L 05/19/19 04:58 Globulin 3.7 g/dL (2.5-4.5) 05/19/19 04:58 Albumin/Globulin Ratio 0.8 Ratio (1.1-2.1) L 05/19/19 04:58 - Plan (1) Community acquired pneumonia Status: Acute Qualifiers: Laterality: left Lung location: lower lobe of lung Qualified Code(s): J18.1 - Lobar pneumonia, unspecified organism Plan: IV LEVAQUIN, RESPIRATORY TREATMENTS, SUPPLEMENTAL OXYGEN, CONTINUE TO MONITOR
[2019-05-19] MEDS: ZANTAC PO SCH (20:17)
[2019-05-19] MEDS: ASPIRIN EC 81 MG PO SCH (20:17)
[2019-05-20] MEDS: NS 1/2 1000 ML IV 1,000 ML IV SCH (03:45)
[2019-05-20 05:23] LABS: BASOPHILS % (AUTO) 0.4 % (0.2-1.0); EOSINOPHILS # (AUTO) 0.2 x10^3/uL (0.0-0.2); EOSINOPHILS % (AUTO) 2.8 % (0.9-2.9); HEMATOCRIT 34.3 % (36.0-47.0); HEMOGLOBIN 11.7 g/dL (12.0-16.0); LYMPHOCYTES # (AUTO) 1.7 X10^3/uL (1.3-2.9); MEAN CORPUSCULAR HEMOGLOBIN 31.1 pg (27.0-34.0); MEAN CORPUSCULAR HGB CONC 34.1 g/dL (33.0-35.0); MEAN CORPUSCULAR VOLUME 91.1 fL (80.0-100.0); MEAN PLATELET VOLUME 7.8 fL (7.4-11.0); MONOCYTES # (AUTO) 0.5 x10^3/uL (0.3-0.8); MONOCYTES % (AUTO) 9.2 % (0.0-13.0); NEUTROPHILS # (AUTO) 3.3 x10^3/uL (2.2-4.8); NEUTROPHILS % (AUTO) 58.6 % (42.0-75.0); PLATELET COUNT 200 X10^3/uL (150.0-450.0); RED BLOOD COUNT 3.76 X10^6/uL (3.5-5.4); RED CELL DISTRIBUTION WIDTH 13.9 % (11.6-16.5); WHITE BLOOD COUNT 5.7 X10^3/uL (3.6-10.0)
[2019-05-20 05:44] LABS: ALANINE AMINOTRANSFERASE 12 Units/L (12-78); ALBUMIN 2.6 g/dL (3.4-5.0); ALKALINE PHOSPHATASE 102 Units/L (46-116); ASPARTATE AMINO TRANSFERASE 13 Units/L (15-37); BLOOD UREA NITROGEN 9 mg/dL (7-18); CALCIUM 8.2 mg/dL (8.5-10.1); CHLORIDE 109 mmol/L (98-107); COR CA(FOR HYPOALB) 9.3 mg/dL (8.5-10.1); COR NA(FOR HYPERGLY) 143 mmol/L (136-145); CREATININE 0.77 mg/dL (0.55-1.02); SODIUM 142 mmol/L (136-145); eGFR NON BLACK RACES > 60 (>60)
[2019-05-20] MEDS: SYNTHROID 75 mcg TAB PO SCH (06:00)
[2019-05-20] MEDS ORDERED: POTASSIUM CHLORIDE LIQ 20 MEQ UDC PO PRN (06:18)
[2019-05-20] MEDS ORDERED: K-DUR TAB 20 MEQ PO PRN (06:18)
[2019-05-20] MEDS ORDERED: POTASSIUM CHL 60 MEQ/NS 0.45% 500 ML IV PRN (06:18)
[2019-05-20] MEDS ORDERED: MAGNESIUM SULFATE 1 GRAM/100 mL PREMIX 1 GM/100 ML BAG IV PRN (06:18)
[2019-05-20] MEDS ORDERED: KLOR-CON PO PRN (06:18)
[2019-05-20] MEDS ORDERED: K-RIDER 10 MEQ/NS 100 ML 10 MEQ/100 ML BAG IV PRN (06:18)
[2019-05-20] MEDS ORDERED: POTASSIUM CHL 40 MEQ/NS 0.45% 500 ML IV PRN (06:18)
[2019-05-20] MEDS ORDERED: MICRO K EXTEN CAP 10 MEQ PO PRN (06:18)
[2019-05-20] MEDS: XOPENEX 1.25 MG/3 ML NEBULE NEB SCH ×2 (08:58→12:16)
[2019-05-20] MEDS: Atrovent NEB TX 0.02% NEB SCH ×2 (08:58→12:16)
[2019-05-20] MEDS: LEVAQUIN PREMIX IV 750 MG 750 MG/150 ML BAG IV SCH (09:08)
[2019-05-20] MEDS: PLAVIX PO SCH (09:09)
[2019-05-20] MEDS: PROTONIX TAB 40 MG PO SCH (09:10)
[2019-05-20] MEDS: AZILSARTAN MEDOXOMIL 80 MG PO SCH (09:10)
[2019-05-20] MEDS: ROBITUSSIN DM PO SCH (09:10)
[2019-05-20] MEDS: SINGULAIR TAB 10 MG PO SCH (09:10)
[2019-05-20] MEDS ORDERED: MAG-OX TAB PO NR (11:00)
[2019-05-20 12:06] VITALS: BP 168/84
== END 2019-05-20 13:05 | disposition home or self-care (01) | DRG 195 ==
LOC: MED/SURG 16:43
PROVIDERS: ADMIT Internal Medicine; ATTEND Internal Medicine
DX: K21.9 Gastro-esophageal reflux disease without esophagitis; R06.02 Shortness of breath; J18.8 Other pneumonia, unspecified organism; I25.10 Atherosclerotic heart disease of native coronary artery without angina pectoris; I11.9 Hypertensive heart disease without heart failure
CPT/HCPCS: 36415; 71010; 71020; 71045; 71046; 80053; 83735; 85025; 87040; 87070; 87205; 94640; 94669; 94760; A4222; J1956; J3475; J3490; J7620; J7644

== ENCOUNTER 2023-12-05 14:10 | Inpatient (IN) ==
[2023-12-05 14:54] VITALS: BMI 31.6
--- NOTE | 2023-12-05 15:10 | DR.NAUSEAF ---
HPI Time Seen Time Seen by Provider: 12/05/23 15:05 Primary Care Physician Primary Care Physician: Shaq Complaints Chief Complaint:: Patient states that starting this morning she has had chills, nausea, and weakness. She states that she has not thrown up any, but still feels nauseated. COVID-19 Coronavirus risk:travel/contact w/high risk person: Yes Has patient experienced Coronavirus symptoms: Yes Coronavirus symptoms experienced: Fever Source History Provided: Patient Mode of Arrival Mode of Arrival: Wheelchair Timing Onset of Chief Complaint: 12/05/23 PMH PMH Past Medical History: Yes Past Medical History: Coronary Artery Disease Past Surgical History: Yes Surgical History: Angioplasty/Stents, and Hysterectomy Family History History of Family Medical Conditions: Yes Family Medical History: Diabetes Mellitus, [place], Coronary Artery Disease, Heart Failure and Hypertension Social History Does patient currently use any type of tobacco product: No Have you used tobacco products in the last 12 months: No Type of Tobacco Use: None Does any household member use tobacco: No Alcohol Use: Occasionally Do you use any recreational Drugs:: No Lives Where: Home Travel Risk Coronavirus risk:travel/contact w/high risk person: Yes Has patient experienced Coronavirus symptoms: Yes Coronavirus symptoms experienced: Fever Infectious screening In the last 2 months have you had wt loss of >10#?: NO Have you had fever, night sweats or hemotysis?: No Have you traveled outside the country in the last 6 months?: No Isolation: Droplet PE Vital Signs Vitals: Vital Signs Temperature 99.2 F Pulse Rate 97 Pulse Rate 95 Pulse Rate 92 Pulse Rate 97 Pulse Rate 93 Pulse Rate 93 Pulse Rate 91 Pulse Rate 91 Pulse Rate 88 Pulse Rate 89 Pulse Rate 88 Pulse Rate 85 Pulse Rate 88 Pulse Rate 86 Pulse Rate 86 Pulse Rate 86 Pulse Rate 87 Pulse Rate 85 Respiratory Rate 18 Blood Pressure 133/61 Blood Pressure 192/75 Blood Pressure 159/67 Blood Pressure 137/60 Blood Pressure 127/58 Blood Pressure 127/58 Blood Pressure 121/61 Blood Pressure 121/61 Blood Pressure 151/65 Blood Pressure 190/80 Blood Pressure 199/84 Blood Pressure 177/74 Blood Pressure 163/70 Blood Pressure 112/52 Blood Pressure 125/57 Blood Pressure 143/61 Blood Pressure 146/66 Blood Pressure 149/66 O2 Sat by Pulse Oximetry 96 O2 Sat by Pulse Oximetry 96 O2 Sat by Pulse Oximetry 97 O2 Sat by Pulse Oximetry 95 O2 Sat by Pulse Oximetry 94 O2 Sat by Pulse Oximetry 96 O2 Sat by Pulse Oximetry 96 O2 Sat by Pulse Oximetry 94 O2 Sat by Pulse Oximetry 96 O2 Sat by Pulse Oximetry 95 O2 Sat by Pulse Oximetry 95 O2 Sat by Pulse Oximetry 95 O2 Sat by Pulse Oximetry 95 O2 Sat by Pulse Oximetry 94 O2 Sat by Pulse Oximetry 95 O2 Sat by Pulse Oximetry 95 O2 Sat by Pulse Oximetry 95 O2 Sat by Pulse Oximetry 95 ROR Labs Reviewed 12/05/23 14:25 12/05/23 14:25 Laboratory: WBC 8.8 X10^3/uL (3.6-10.0) 12/05/23 14:25 RBC 4.23 X10^6/uL (3.5-5.4) 12/05/23 14:25 Hgb 13.4 g/dL (12.0-16.0) 12/05/23 14:25 Hct 39.4 % (36.0-47.0) 12/05/23 14:25 MCV 93.3 fL (80.0-100.0) 12/05/23 14:25 MCH 31.7 pg (27.0-34.0) 12/05/23 14:25 MCHC 34.0 g/dL (33.0-35.0) 12/05/23 14:25 RDW 13.6 % (11.6-16.5) 12/05/23 14:25 Plt Count 154 X10^3/uL (150.0-450.0) 12/05/23 14:25 Plt Count Comment Adequate (ADEQUATE) 12/05/23 14:25 MPV 7.8 fL (7.4-11.0) 12/05/23 14:25 Neut % (Auto) 93.7 % (42.0-75.0) H 12/05/23 14:25 Lymph % (Auto) 3.5 % (21.0-51.0) L 12/05/23 14:25 [place] % (Auto) 2.5 % (0.0-13.0) 12/05/23 14:25 Eos % (Auto) 0.2 % (0.9-2.9) L 12/05/23 14:25 Baso % (Auto) 0.1 % (0.2-1.0) L 12/05/23 14:25 Neut # (Auto) 8.2 x10^3/uL (2.2-4.8) H 12/05/23 14:25 Lymph # (Auto) 0.3 X10^3/uL (1.3-2.9) L 12/05/23 14:25 [place] # (Auto) 0.2 x10^3/uL (0.3-0.8) L 12/05/23 14:25 Eos # (Auto) 0.0 x10^3/uL (0.0-0.2) 12/05/23 14:25 Baso # (Auto) 0.0 X10^3/uL (0.0-0.1) 12/05/23 14:25 Absolute Nucleated RBC 0.0 /100WBC 12/05/23 14:25 Total Counted 100 12/05/23 14:25 Neutrophils % (Manual) 89 % (39-76) H 12/05/23 14:25 Lymphocytes % (Manual) 8 % (13-43) L 12/05/23 14:25 Monocytes % (Manual) 3 % (4-9) L 12/05/23 14:25 Plt Morphology Comment Normal (NORMAL) 12/05/23 14:25 RBC Morphology Normal (NORMAL) 12/05/23 14:25 Sodium 142 mmol/L (136-145) 12/05/23 14:25 Corrected Sodium 142 mmol/L (136-145) 12/05/23 14:25 Potassium 3.5 mmol/L (3.5-5.1) 12/05/23 14:25 Chloride 106 mmol/L (98-107) 12/05/23 14:25 Carbon Dioxide 27.1 mmol/L (21-32) 12/05/23 14:25 BUN 16 mg/dL (7-18) 12/05/23 14:25 Creatinine 0.82 mg/dL (0.55-1.02) 12/05/23 14:25 Est GFR (MDRD) Af Amer > 60 (>60) 12/05/23 14:25 Est GFR (MDRD) Non-Af > 60 (>60) 12/05/23 14:25 Glucose 111 mg/dL (65-99) H 12/05/23 14:25 Calcium 8.4 mg/dL (8.5-10.1) L 12/05/23 14:25 Corrected Calcium 9.0 mg/dL (8.5-10.1) 12/05/23 14:25 Total Bilirubin 0.90 mg/dL (0.2-1.0) 12/05/23 14:25 AST 18 Units/L (15-37) 12/05/23 14:25 ALT 19 Units/L (12-78) 12/05/23 14:25 Alkaline Phosphatase 102 Units/L (46-116) 12/05/23 14:25 Total Protein 6.5 g/dL (6.4-8.2) 12/05/23 14:25 Albumin 3.2 g/dL (3.4-5.0) L 12/05/23 14:25 Globulin 3.3 g/dL (2.5-4.5) 12/05/23 14:25 Albumin/Globulin Ratio 1.0 Ratio (1.1-2.1) L 12/05/23 14:25 Amylase 41 Units/L (25-115) 12/05/23 14:25 Lipase 15 Units/L (16-77) L 12/05/23 14:25 Specimen Type Clean catch urine 12/05/23 18:28 Urine Color [place] (YELLOW) 12/05/23 18:28 Urine Appearance Clear (CLEAR) 12/05/23 18:28 Urine pH 7.0 (5.0 - 8.0) 12/05/23 18:28 Ur Specific Gu[place] 1.010 (1.000-1.030) 12/05/23 18:28 Urine Protein Negative (NEGATIVE) 12/05/23 18:28 Urine Glucose (UA) Negative (NEGATIVE) 12/05/23 18:28 Urine Ketones 4+ (NEGATIVE) 12/05/23 18:28 Urine Blood Negative (NEGATIVE) 12/05/23 18:28 Urine Nitrite Negative (NEGATIVE) 12/05/23 18:28 Urine Bilirubin Negative (NEGATIVE) 12/05/23 18:28 Urine Urobilinogen 2+ (NORMAL) 12/05/23 18:28 Ur Leukocyte Esterase 1+ (NEGATIVE) 12/05/23 18:28 Urine RBC 0-2 /HPF (0-3) 12/05/23 18:28 Urine WBC 0-2 /HPF (0-5) 12/05/23 18:28 Ur Squamous Epith Cells Moderate /HPF (NEGATIVE) 12/05/23 18:28 Urine Bacteria Trace /HPF (NEGATIVE) 12/05/23 18:28 Urine Mucus Moderate /HPF (NEGATIVE) 12/05/23 18:28 Ur Culture Indicated? No/not indicated 12/05/23 18:28 SARS-CoV-2 (PCR) Negative (NEGATIVE) 12/05/23 16:18 Influenza Type A (PCR) Negative (NEGATIVE) 12/05/23 16:18 Influenza Type B (PCR) Negative (NEGATIVE) 12/05/23 16:18 RSV (PCR) Negative (NEGATIVE) 12/05/23 16:18 Opioid Opioid Risk Tool Age (Gio box if 16-45): No History of Preadolescent Sexual Abuse: No Total: 0 Total Score Risk Category: Low Risk Copyright: Aftab CRESPO predicting aberrant behaviors Discharge Plan Discharge Plan Patient Disposition: 01 HOME, SELF-CARE Condition: Stable Orders to Discharge Patient Discharge Orders: Transfer (Routine); Ordered 12/05/23 Ordered By: ODILON CABRERA
[2023-12-05] MEDS ORDERED: ZOFRAN INJ 4 MG VIAL ONE ×2 (15:16→19:11)
[2023-12-05] MEDS ORDERED: NS 1,000 ML IV 1,000 ML ONE (15:16)
[2023-12-05] MEDS: NS 1,000 ML IV 1,000 ML IV SCH ×2 (15:28→21:50)
[2023-12-05] MEDS: ZOFRAN INJ 4 MG VIAL IVP ONE ×2 (15:29→19:16)
[2023-12-05 15:32] LABS: BASOPHILS % (AUTO) 0.1 % (0.2-1.0); MONOCYTES # (AUTO) 0.2 x10^3/uL (0.3-0.8); MONOCYTES % (AUTO) 2.5 % (0.0-13.0); PLATELET COUNT 154 X10^3/uL (150.0-450.0)
[2023-12-05 15:40] LABS: EOSINOPHILS % (AUTO) 0.2 % (0.9-2.9); HEMATOCRIT 39.4 % (36.0-47.0); HEMOGLOBIN 13.4 g/dL (12.0-16.0); LYMPHOCYTES # (AUTO) 0.3 X10^3/uL (1.3-2.9); LYMPHOCYTES % (AUTO) 3.5 % (21.0-51.0); MEAN CORPUSCULAR HEMOGLOBIN 31.7 pg (27.0-34.0); MEAN CORPUSCULAR VOLUME 93.3 fL (80.0-100.0); MEAN PLATELET VOLUME 7.8 fL (7.4-11.0); NEUTROPHILS # (AUTO) 8.2 x10^3/uL (2.2-4.8); NEUTROPHILS % (AUTO) 93.7 % (42.0-75.0); RED BLOOD COUNT 4.23 X10^6/uL (3.5-5.4); RED CELL DISTRIBUTION WIDTH 13.6 % (11.6-16.5); WHITE BLOOD COUNT 8.8 X10^3/uL (3.6-10.0)
[2023-12-05 15:48] LABS: ALANINE AMINOTRANSFERASE 19 Units/L (12-78); ALBUMIN 3.2 g/dL (3.4-5.0); ALKALINE PHOSPHATASE 102 Units/L (46-116); AMYLASE 41 Units/L (25-115); ASPARTATE AMINO TRANSFERASE 18 Units/L (15-37); BLOOD UREA NITROGEN 16 mg/dL (7-18); CALCIUM 8.4 mg/dL (8.5-10.1); CARBON DIOXIDE 27.1 mmol/L (21-32); CHLORIDE 106 mmol/L (98-107); COR NA(FOR HYPERGLY) 142 mmol/L (136-145); CREATININE 0.82 mg/dL (0.55-1.02); GLUCOSE 111 mg/dL (65-99); LIPASE 15 Units/L (16-77); POTASSIUM 3.5 mmol/L (3.5-5.1); SODIUM 142 mmol/L (136-145); TOTAL PROTEIN 6.5 g/dL (6.4-8.2); eGFR NON BLACK RACES > 60 (>60)
[2023-12-05 16:00] LABS: PLATELET MORPHOLOGY COMMENT NORMAL (NORMAL)
--- NOTE | 2023-12-05 16:48 | CT ---
EXAM:ABDOMEN/PELVIS W/O CONHISTORY:NAUSEA, CHILLS SINCE THIS AM ; HX- CORONARY ARTERY DISEASE SX- STENTS, GYNCOMPARISON:None.TECHNIQUE:Nonenhanced spiral CT imaging was performed through the abdomen and pelvis and axial, coronal, and sagittal CT images were generated.FINDINGS:There is minimal basilar atelectasis. There is no pleural effusion. Heart size is normal. There is multivessel coronary atherosclerosis. There is some benign calcification and cystic lesion liver. There are stones in the gallbladder but no evidence of cystitis pancreas is somewhat atrophic. The spleen and glands are normal kidneys are normal size and enhancement without mass, stone, or hydronephrosis. Stomach is normal. There is a duodenal diverticulum. The small bowel loops and appendix are normal. There is diverticulosis colon but no diverticulitis. There is mild urinary bladder wall thickening. The has been. There is moderate systemic atherosclerosis. There is degeneration of the spine in the hips.IMPRESSION:1. No etiology for acute infection is identified.2. Cholelithiasis without cholecystitis.3. Diverticulosis coli without diverticulitis.4. Mild urinary bladder wall thickening. Question cystitis.THIS IS AN ELECTRONICALLY VERIFIED FINAL REPORT12/05/2023 4:45 PM - Electronically signed by Theron Avalos MD
[2023-12-05] MEDS ORDERED: APRESOLINE INJ 20 MG VIAL ONE (18:13)
[2023-12-05] MEDS: APRESOLINE INJ 20 MG VIAL IVP ONE (18:16)
[2023-12-05 18:35] LABS: BILIRUBIN,URINE NEGATIVE (NEGATIVE); BLOOD/HEMOGLOBIN,URINE NEGATIVE (NEGATIVE); GLUCOSE, URINE NEGATIVE (NEGATIVE); KETONES,URINE 4+ (NEGATIVE); LEUKOCYTE ESTERASE ,URINE 1+ (NEGATIVE); NITRITES,URINE NEGATIVE (NEGATIVE); PROTEIN,URINE NEGATIVE (NEGATIVE); UROBILINOGEN,URINE 2+ (NORMAL)
[2023-12-05 18:44] LABS: APPEARANCE,URINE CLEAR (CLEAR); BACTERIA,URINE TRACE /HPF (NEGATIVE); COLOR,URINE AMBER (YELLOW); RBC,URINE 0-2 /HPF (0-3); SQUAMOUS EPITHELIAL CELL,UR MODERATE /HPF (NEGATIVE)
[2023-12-05] MEDS ORDERED: ZOFRAN INJ 4 MG VIAL IVP PRN (21:31)
[2023-12-05] MEDS: K-DUR TAB 20 MEQ PO ONE (21:50)
[2023-12-05] MEDS: ROCEPHIN VIAL 1 GRAM 1 G in NS 100 ML IV 100 ML IV SCH (21:50)
[2023-12-05] MEDS: CONSULT PHARMACY - POTASSIUM & MAGNESIUM XX SCH (22:29)
[2023-12-06] MEDS: TYLENOL 325 MG TAB PO PRN (02:04)
[2023-12-06 06:00] LABS: BASOPHILS % (AUTO) 0.3 % (0.2-1.0); EOSINOPHILS % (AUTO) 0.2 % (0.9-2.9); HEMATOCRIT 34.9 % (36.0-47.0); LYMPHOCYTES # (AUTO) 0.5 X10^3/uL (1.3-2.9); LYMPHOCYTES % (AUTO) 6.1 % (21.0-51.0); MEAN CORPUSCULAR HEMOGLOBIN 32.1 pg (27.0-34.0); MEAN CORPUSCULAR HGB CONC 34.5 g/dL (33.0-35.0); MEAN CORPUSCULAR VOLUME 92.9 fL (80.0-100.0); MEAN PLATELET VOLUME 8.7 fL (7.4-11.0); MONOCYTES # (AUTO) 0.5 x10^3/uL (0.3-0.8); MONOCYTES % (AUTO) 5.8 % (0.0-13.0); NEUTROPHILS # (AUTO) 7.6 x10^3/uL (2.2-4.8); NEUTROPHILS % (AUTO) 87.6 % (42.0-75.0); PLATELET COUNT 145 X10^3/uL (150.0-450.0); RED BLOOD COUNT 3.76 X10^6/uL (3.5-5.4); RED CELL DISTRIBUTION WIDTH 14.1 % (11.6-16.5); WHITE BLOOD COUNT 8.7 X10^3/uL (3.6-10.0)
[2023-12-06 06:23] LABS: ALANINE AMINOTRANSFERASE 17 Units/L (12-78); ALBUMIN 2.5 g/dL (3.4-5.0); ALKALINE PHOSPHATASE 77 Units/L (46-116); ASPARTATE AMINO TRANSFERASE 19 Units/L (15-37); BLOOD UREA NITROGEN 14 mg/dL (7-18); CALCIUM 7.8 mg/dL (8.5-10.1); CARBON DIOXIDE 25.5 mmol/L (21-32); CHLORIDE 109 mmol/L (98-107); CREATININE 0.73 mg/dL (0.55-1.02); GLUCOSE 104 mg/dL (65-99); MAGNESIUM 1.4 mg/dL (2.0-2.9); POTASSIUM 3.9 mmol/L (3.5-5.1); SODIUM 142 mmol/L (136-145); TOTAL PROTEIN 5.6 g/dL (6.4-8.2); eGFR NON BLACK RACES > 60 (>60)
[2023-12-06] MEDS: RANEXA PO SCH (10:50)
[2023-12-06] MEDS: SYNTHROID 75 mcg TAB PO SCH (10:51)
[2023-12-06] MEDS: PULMICORT NEB TX 0.5 MG NEB SCH (12:13)
[2023-12-06] MEDS: LOPRESSOR TAB 25 MG PO SCH (20:08)
[2023-12-07] MEDS: ROBITUSSIN DM PO PRN (02:01)
[2023-12-07 05:59] LABS: BASOPHILS % (AUTO) 0.5 % (0.2-1.0); EOSINOPHILS # (AUTO) 0.1 x10^3/uL (0.0-0.2); EOSINOPHILS % (AUTO) 1.4 % (0.9-2.9); HEMATOCRIT 35.5 % (36.0-47.0); HEMOGLOBIN 11.9 g/dL (12.0-16.0); LYMPHOCYTES # (AUTO) 0.9 X10^3/uL (1.3-2.9); LYMPHOCYTES % (AUTO) 16.7 % (21.0-51.0); MEAN CORPUSCULAR HEMOGLOBIN 31.4 pg (27.0-34.0); MEAN CORPUSCULAR HGB CONC 33.4 g/dL (33.0-35.0); MEAN CORPUSCULAR VOLUME 94.1 fL (80.0-100.0); MEAN PLATELET VOLUME 8.6 fL (7.4-11.0); MONOCYTES # (AUTO) 0.5 x10^3/uL (0.3-0.8); NEUTROPHILS % (AUTO) 72.4 % (42.0-75.0); PLATELET COUNT 130 X10^3/uL (150.0-450.0); RED BLOOD COUNT 3.77 X10^6/uL (3.5-5.4); RED CELL DISTRIBUTION WIDTH 13.5 % (11.6-16.5); WHITE BLOOD COUNT 5.5 X10^3/uL (3.6-10.0)
[2023-12-07 06:11] LABS: ALANINE AMINOTRANSFERASE 29 Units/L (12-78); ALBUMIN 2.5 g/dL (3.4-5.0); ALKALINE PHOSPHATASE 87 Units/L (46-116); ASPARTATE AMINO TRANSFERASE 33 Units/L (15-37); BLOOD UREA NITROGEN 8 mg/dL (7-18); CARBON DIOXIDE 26.4 mmol/L (21-32); CHLORIDE 111 mmol/L (98-107); COR CA(FOR HYPOALB) 9.2 mg/dL (8.5-10.1); CREATININE 0.63 mg/dL (0.55-1.02); GLUCOSE 93 mg/dL (65-99); POTASSIUM 3.9 mmol/L (3.5-5.1); SODIUM 146 mmol/L (136-145); TOTAL PROTEIN 5.7 g/dL (6.4-8.2); eGFR NON BLACK RACES > 60 (>60)
--- NOTE | 2023-12-07 06:26 | RAD ---
EXAM: Portable chest HISTORY: Fever, chills, weakness COMPARISON: 04/09/2023 FINDINGS: Heart size is normal. Coronary artery stent again identified. Ashwini are normal. No congestive hea rt failure or infiltrates identified. Right hemidiaphragm is elevated. Bony thorax is unremarkable. IMPRESSION: No acute infiltrates Elevated right hemidiaphragm THIS IS AN ELECTRONICALLY VERIFIED FINAL REPORT 12/07/2023 6:23 AM - Electronically signed by Jamison Edge MD
--- NOTE | 2023-12-07 08:14 | DR.H&P ---
H&P History & Physical for Day of: H&P Date: 12/05/23 Chief Complaint Chief Complaint: CHILLS DIFFUSE WEAKNESS, LOWER STOMACH PAIN, COUGH Allergies Allergies Allergy/AdvReac Type Severity Reaction Status Date / Time hydrocodone Allergy Unknown Verified 12/05/23 15:06 phenyltoloxamine Allergy Unknown Verified 12/05/23 15:06 History of Present Illness History of Present Illness: Pt is 77 BF, ER admission after patient states that starting this morning she has had chills, nausea, and weakness. Pt co cough, "I always get this time of year" and lower abdominal "soreness" Pt reports sitter in the home was sick with flu like symptoms this past week. Pt has PMH of hypertension. Pt denies any chest pain or SOB Past Medical History Past Medical History: Coronary Artery Disease Additional Medical History: Hx Breast Cancer, Cataracts, Bronchitis, Pneumonia, Constipation, Prior Blood Transfusion Past Surgical History Surgical History: Angioplasty/Stents, and Hysterectomy Additional Surgical History: S/P Left Breast Lumpectomy, Tumor removed from stomach, x2 Family History Family Medical History: Diabetes Mellitus, [place], Coronary Artery Disease, Heart Failure and Hypertension Social History Does patient currently use any type of tobacco product: No Have you used tobacco products in the last 12 months: No Type of Tobacco Use: None Does any household member use tobacco: No Alcohol Use: None Drug Use: None Medications Home Medications: Home Medications Medication Instructions Recorded Confirmed Type ascorbic acid (vitamin C) 500 mg 1,000 mg PO QDAY 12/05/23 12/05/23 History tablet aspirin 81 mg tablet,delayed 81 mg PO QDAY 12/05/23 12/05/23 History release dicyclomine 10 mg capsule 10 mg PO Q6H PRN pain 12/05/23 12/05/23 History ergocalciferol (vitamin D2) 1,250 1,250 mcg PO QWEEK 12/05/23 12/05/23 History mcg (50,000 unit) capsule levothyroxine 75 mcg tablet 75 mcg PO QDAY 12/05/23 12/05/23 History metoprolol tartrate 25 mg tablet 25 mg PO BID 12/05/23 12/05/23 History montelukast 10 mg tablet 10 mg PO QDAY 12/05/23 12/05/23 History ranolazine 500 mg tablet,extended 500 mg PO BID 12/05/23 12/05/23 History release,12 hr Labs 12/07/23 05:26 12/07/23 05:26 Labs: Laboratory WBC 5.5 X10^3/uL (3.6-10.0) 12/07/23 05:26 RBC 3.77 X10^6/uL (3.5-5.4) 12/07/23 05:26 Hgb 11.9 g/dL (12.0-16.0) L 12/07/23 05:26 Hct 35.5 % (36.0-47.0) L 12/07/23 05:26 MCV 94.1 fL (80.0-100.0) 12/07/23 05:26 MCH 31.4 pg (27.0-34.0) 12/07/23 05:26 MCHC 33.4 g/dL (33.0-35.0) 12/07/23 05:26 RDW 13.5 % (11.6-16.5) 12/07/23 05:26 Plt Count 130 X10^3/uL (150.0-450.0) L 12/07/23 05:26 Plt Count Comment Adequate (ADEQUATE) 12/05/23 14:25 MPV 8.6 fL (7.4-11.0) 12/07/23 05:26 Neut % (Auto) 72.4 % (42.0-75.0) 12/07/23 05:26 Lymph % (Auto) 16.7 % (21.0-51.0) L 12/07/23 05:26 [place] % (Auto) 9.0 % (0.0-13.0) 12/07/23 05:26 Eos % (Auto) 1.4 % (0.9-2.9) 12/07/23 05:26 Baso % (Auto) 0.5 % (0.2-1.0) 12/07/23 05:26 Neut # (Auto) 4.0 x10^3/uL (2.2-4.8) 12/07/23 05:26 Lymph # (Auto) 0.9 X10^3/uL (1.3-2.9) L 12/07/23 05:26 [place] # (Auto) 0.5 x10^3/uL (0.3-0.8) 12/07/23 05:26 Eos # (Auto) 0.1 x10^3/uL (0.0-0.2) 12/07/23 05:26 Baso # (Auto) 0.0 X10^3/uL (0.0-0.1) 12/07/23 05:26 Absolute Nucleated RBC 0.0 /100WBC 12/07/23 05:26 Total Counted 100 12/05/23 14:25 Neutrophils % (Manual) 89 % (39-76) H 12/05/23 14:25 Lymphocytes % (Manual) 8 % (13-43) L 12/05/23 14:25 Monocytes % (Manual) 3 % (4-9) L 12/05/23 14:25 Plt Morphology Comment Normal (NORMAL) 12/05/23 14:25 RBC Morphology Normal (NORMAL) 12/05/23 14:25 Sodium 146 mmol/L (136-145) H 12/07/23 05:26 Corrected Sodium TNP 12/07/23 05:26 Potassium 3.9 mmol/L (3.5-5.1) 12/07/23 05:26 Chloride 111 mmol/L (98-107) H 12/07/23 05:26 Carbon Dioxide 26.4 mmol/L (21-32) 12/07/23 05:26 BUN 8 mg/dL (7-18) 12/07/23 05:26 Creatinine 0.63 mg/dL (0.55-1.02) 12/07/23 05:26 Est GFR (MDRD) Af Amer > 60 (>60) 12/07/23 05:26 Est GFR (MDRD) Non-Af > 60 (>60) 12/07/23 05:26 Glucose 93 mg/dL (65-99) 12/07/23 05:26 Calcium 8.0 mg/dL (8.5-10.1) L 12/07/23 05:26 Corrected Calcium 9.2 mg/dL (8.5-10.1) 12/07/23 05:26 Magnesium 1.6 mg/dL (2.0-2.9) L 12/07/23 05:26 Total Bilirubin 0.60 mg/dL (0.2-1.0) 12/07/23 05:26 AST 33 Units/L (15-37) 12/07/23 05:26 ALT 29 Units/L (12-78) 12/07/23 05:26 Alkaline Phosphatase 87 Units/L (46-116) 12/07/23 05:26 Total Protein 5.7 g/dL (6.4-8.2) L 12/07/23 05:26 Albumin 2.5 g/dL (3.4-5.0) L 12/07/23 05:26 Globulin 3.2 g/dL (2.5-4.5) 12/07/23 05:26 Albumin/Globulin Ratio 0.8 Ratio (1.1-2.1) L 12/07/23 05:26 Amylase 41 Units/L (25-115) 12/05/23 14:25 Lipase 15 Units/L (16-77) L 12/05/23 14:25 Specimen Type Clean catch urine 12/05/23 18:28 Urine Color [place] (YELLOW) 12/05/23 18:28 Urine Appearance Clear (CLEAR) 12/05/23 18:28 Urine pH 7.0 (5.0 - 8.0) 12/05/23 18:28 Ur Specific [place] 1.010 (1.000-1.030) 12/05/23 18:28 Urine Protein Negative (NEGATIVE) 12/05/23 18:28 Urine Glucose (UA) Negative (NEGATIVE) 12/05/23 18:28 Urine Ketones 4+ (NEGATIVE) 12/05/23 18:28 Urine Blood Negative (NEGATIVE) 12/05/23 18:28 Urine Nitrite Negative (NEGATIVE) 12/05/23 18:28 Urine Bilirubin Negative (NEGATIVE) 12/05/23 18:28 Urine Urobilinogen 2+ (NORMAL) 12/05/23 18:28 Ur Leukocyte Esterase 1+ (NEGATIVE) 12/05/23 18:28 Urine RBC 0-2 /HPF (0-3) 12/05/23 18:28 Urine WBC 0-2 /HPF (0-5) 12/05/23 18:28 Ur Squamous Epith Cells Moderate /HPF (NEGATIVE) 12/05/23 18:28 Urine Bacteria Trace /HPF (NEGATIVE) 12/05/23 18:28 Urine Mucus Moderate /HPF (NEGATIVE) 12/05/23 18:28 Ur Culture Indicated? No/not indicated 12/05/23 18:28 SARS-CoV-2 (PCR) Negative (NEGATIVE) 12/05/23 16:18 Influenza Type A (PCR) Negative (NEGATIVE) 12/05/23 16:18 Influenza Type B (PCR) Negative (NEGATIVE) 12/05/23 16:18 RSV (PCR) Negative (NEGATIVE) 12/05/23 16:18 Review of Systems Constitutional: Chills and Weakness Eyes: No Symptoms Reported ENT: No Symptoms Reported Respiratory: Cough Cardiovascular: denies Chest Pain, Palpitations or Edema Gastrointestinal: Nausea and Abdominal Pain (LOWER ABDOMINAL SORENESS) Genitourinary: No Symptoms Reported Musculoskeletal: No Symptoms Reported Skin: No Symptoms Reported Neurological: Weakness (MILD DIFFUSE) Physical Exam Vital Signs: Vital Signs Temperature 98.2 F Pulse Rate [Left Radial] 63 Respiratory Rate 20 Respiratory Rate 20 Blood Pressure [Left Arm] 149/67 O2 Sat by Pulse Oximetry 98 Oriented: Normal Eyes: Normal Ear: Normal Nose: Normal Throat: Normal Respiratory: RLL Diminished and LLL Diminished Cardiovascular: Normal : Normal Auscultation: Bowel Sounds: Normal Palpation: negative Spleen Enlarged or Liver Enlarged Tenderness: RLQ, LLQ, Suprapubic and Mild Skin: Decreased [place] Musculoskeletal: Normal Psychiatric: Normal Mood Description: Calm Affect: Normal Speech Pattern: Clear and Appropriate Assessment/Plan (1) UTI (urinary tract infection): Narrative Support Text: ADMIT, UC ON ADMISSIONN IV ROCEPHIN CT ABD/PELVIS OBTAINED IN ER ON ADMISSION IV HYDRATION BP CONROL VERIFY HOME MEDICATION REPEAT AM LABS RESP CONSULT Status: Acute (2) Viral respiratory illness: Status: Acute (3) Malaise: Status: Acute (4) GERD (gastroesophageal reflux disease): Qualifiers: Esophagitis presence: esophagitis presence not specified Qualified Code(s): K21.9 - Gastro-esophageal reflux disease without esophagitis Status: Chronic (5) Hypothyroidism: Qualifiers: Hypothyroidism type: acquired Qualified Code(s): E03.9 - Hypothyroidism, unspecified Status: Chronic (6) Hypertension: Qualifiers: Hypertension type: essential hypertension Qualified Code(s): I10 - Essential (primary) hypertension Status: Chronic
[2023-12-07] MEDS: LOVENOX INJ 40 MG SYR SC SCH (08:31)
[2023-12-07] MEDS: MAG-OX TAB PO SCH (08:34)
[2023-12-07] MEDS ORDERED: CONSULT PHARMACY - POTASSIUM & MAGNESIUM XX SCH (09:00)
--- NOTE | 2023-12-07 09:33 | PCM.PROG ---
Progress Note Progress Note for Day of Date of Exam: 12/07/23 Subjective Subjective: Patient seen at bedside, no acute events overnight. She was admitted for generalized weakness, fever and chills. She also had elevated BP on admission. She reports having some cough and congestion. Denies any mucus. She has been afebrile here. She also had CTAP done due to abdominal pain which showed possible cystitis. She was started on IV Rocephin. She reports having worsening right hip pain. Denies recent falls or injuries. Labs/imaging reviewed - Mag 1.6 BUN/Cr 8/0.63 Plt 130 - Respiratory panel (-) - CXR: no acute process, elevated right hemidiaphragm Plan: Continue IV Rocephin. Follow urine Cx. Consult PT/OT. Replace electrolytes prn. Will add nebs and albuterol prn. Will order right hip XR. Monitor AM labs/imaging. Past Medical Family Social History Allergies: Allergies hydrocodone Allergy (Unknown, Verified 12/05/23 15:06) From [facility] phenyltoloxamine Allergy (Unknown, Verified 12/05/23 15:06) From [facility] Vital Signs and I&O's Vital Signs: Vital Signs Temperature 98.2 F Pulse Rate [Left Radial] 63 Respiratory Rate 20 Blood Pressure [Left Arm] 149/67 O2 Sat by Pulse Oximetry 98 Intake and Output: Intake & Output 12/04/23 12/05/23 12/06/23 12/07/23 23:59 23:59 23:59 23:59 Intake Total 1082 / 1082 1398 / 1398 0 / 0 Output Total 200 / 200 Balance 1082 / 1082 1398 / 1398 -200 / -200 Physical Exam Oriented: Normal Eyes: Normal Ear: Normal Nose: Normal Throat: Normal Respiratory: Generalized and Diminished Cardiovascular: Normal Auscultation: Bowel Sounds: Normal Palpation: Normal Skin: Decreased [place] Musculoskeletal: Right and Hip Psychiatric: Normal Mood Description: Calm Affect: Normal Speech Pattern: Clear and Appropriate Laboratory and Diagnostics 12/07/23 05:26 12/07/23 05:26 Labs: Laboratory WBC 5.5 X10^3/uL (3.6-10.0) 12/07/23 05:26 RBC 3.77 X10^6/uL (3.5-5.4) 12/07/23 05:26 Hgb 11.9 g/dL (12.0-16.0) L 12/07/23 05:26 Hct 35.5 % (36.0-47.0) L 12/07/23 05:26 MCV 94.1 fL (80.0-100.0) 12/07/23 05:26 MCH 31.4 pg (27.0-34.0) 12/07/23 05:26 MCHC 33.4 g/dL (33.0-35.0) 12/07/23 05:26 RDW 13.5 % (11.6-16.5) 12/07/23 05:26 Plt Count 130 X10^3/uL (150.0-450.0) L 12/07/23 05:26 Plt Count Comment Adequate (ADEQUATE) 12/05/23 14:25 MPV 8.6 fL (7.4-11.0) 12/07/23 05:26 Neut % (Auto) 72.4 % (42.0-75.0) 12/07/23 05:26 Lymph % (Auto) 16.7 % (21.0-51.0) L 12/07/23 05:26 [place] % (Auto) 9.0 % (0.0-13.0) 12/07/23 05:26 Eos % (Auto) 1.4 % (0.9-2.9) 12/07/23 05:26 Baso % (Auto) 0.5 % (0.2-1.0) 12/07/23 05:26 Neut # (Auto) 4.0 x10^3/uL (2.2-4.8) 12/07/23 05:26 Lymph # (Auto) 0.9 X10^3/uL (1.3-2.9) L 12/07/23 05:26 [place] # (Auto) 0.5 x10^3/uL (0.3-0.8) 12/07/23 05:26 Eos # (Auto) 0.1 x10^3/uL (0.0-0.2) 12/07/23 05:26 Baso # (Auto) 0.0 X10^3/uL (0.0-0.1) 12/07/23 05:26 Absolute Nucleated RBC 0.0 /100WBC 12/07/23 05:26 Total Counted 100 12/05/23 14:25 Neutrophils % (Manual) 89 % (39-76) H 12/05/23 14:25 Lymphocytes % (Manual) 8 % (13-43) L 12/05/23 14:25 Monocytes % (Manual) 3 % (4-9) L 12/05/23 14:25 Plt Morphology Comment Normal (NORMAL) 12/05/23 14:25 RBC Morphology Normal (NORMAL) 12/05/23 14:25 Sodium 146 mmol/L (136-145) H 12/07/23 05:26 Corrected Sodium TNP 12/07/23 05:26 Potassium 3.9 mmol/L (3.5-5.1) 12/07/23 05:26 Chloride 111 mmol/L (98-107) H 12/07/23 05:26 Carbon Dioxide 26.4 mmol/L (21-32) 12/07/23 05:26 BUN 8 mg/dL (7-18) 12/07/23 05:26 Creatinine 0.63 mg/dL (0.55-1.02) 12/07/23 05:26 Est GFR (MDRD) Af Amer > 60 (>60) 12/07/23 05:26 Est GFR (MDRD) Non-Af > 60 (>60) 12/07/23 05:26 Glucose 93 mg/dL (65-99) 12/07/23 05:26 Calcium 8.0 mg/dL (8.5-10.1) L 12/07/23 05:26 Corrected Calcium 9.2 mg/dL (8.5-10.1) 12/07/23 05:26 Magnesium 1.6 mg/dL (2.0-2.9) L 12/07/23 05:26 Total Bilirubin 0.60 mg/dL (0.2-1.0) 12/07/23 05:26 AST 33 Units/L (15-37) 12/07/23 05:26 ALT 29 Units/L (12-78) 12/07/23 05:26 Alkaline Phosphatase 87 Units/L (46-116) 12/07/23 05:26 Total Protein 5.7 g/dL (6.4-8.2) L 12/07/23 05:26 Albumin 2.5 g/dL (3.4-5.0) L 12/07/23 05:26 Globulin 3.2 g/dL (2.5-4.5) 12/07/23 05:26 Albumin/Globulin Ratio 0.8 Ratio (1.1-2.1) L 12/07/23 05:26 Amylase 41 Units/L (25-115) 12/05/23 14:25 Lipase 15 Units/L (16-77) L 12/05/23 14:25 Specimen Type Clean catch urine 12/05/23 18:28 Urine Color [place] (YELLOW) 12/05/23 18:28 Urine Appearance Clear (CLEAR) 12/05/23 18:28 Urine pH 7.0 (5.0 - 8.0) 12/05/23 18:28 Ur Specific [place] 1.010 (1.000-1.030) 12/05/23 18:28 Urine Protein Negative (NEGATIVE) 12/05/23 18:28 Urine Glucose (UA) Negative (NEGATIVE) 12/05/23 18:28 Urine Ketones 4+ (NEGATIVE) 12/05/23 18:28 Urine Blood Negative (NEGATIVE) 12/05/23 18:28 Urine Nitrite Negative (NEGATIVE) 12/05/23 18:28 Urine Bilirubin Negative (NEGATIVE) 12/05/23 18:28 Urine Urobilinogen 2+ (NORMAL) 12/05/23 18:28 Ur Leukocyte Esterase 1+ (NEGATIVE) 12/05/23 18:28 Urine RBC 0-2 /HPF (0-3) 12/05/23 18:28 Urine WBC 0-2 /HPF (0-5) 12/05/23 18:28 Ur Squamous Epith Cells Moderate /HPF (NEGATIVE) 12/05/23 18:28 Urine Bacteria Trace /HPF (NEGATIVE) 12/05/23 18:28 Urine Mucus Moderate /HPF (NEGATIVE) 12/05/23 18:28 Ur Culture Indicated? No/not indicated 12/05/23 18:28 SARS-CoV-2 (PCR) Negative (NEGATIVE) 12/05/23 16:18 Influenza Type A (PCR) Negative (NEGATIVE) 12/05/23 16:18 Influenza Type B (PCR) Negative (NEGATIVE) 12/05/23 16:18 RSV (PCR) Negative (NEGATIVE) 12/05/23 16:18 Plan (1) UTI (urinary tract infection): Status: Acute Qualifiers: Hematuria presence: without hematuria Urinary tract infection type: acute cystitis Qualified Code(s): N30.00 - Acute cystitis without hematuria (2) Right hip pain: Status: Acute (3) Viral respiratory illness: Status: Acute (4) Malaise: Status: Acute (5) GERD (gastroesophageal reflux disease): Status: Chronic Qualifiers: Esophagitis presence: esophagitis presence not specified Qualified Code(s): K21.9 - Gastro-esophageal reflux disease without esophagitis (6) Hypothyroidism: Status: Chronic Qualifiers: Hypothyroidism type: acquired Qualified Code(s): E03.9 - Hypothyroidism, unspecified (7) Hypertension: Status: Chronic Qualifiers: Hypertension type: essential hypertension Qualified Code(s): I10 - Essential (primary) hypertension (8) CAD (coronary artery disease): Status: Chronic Qualifiers: Associated angina: with stable angina Coronary Disease-Associated Artery/Lesion type: [place] artery [place] vs. transplanted heart: [place] heart Qualified Code(s): I25.118 - Atherosclerotic heart disease of [place] coronary artery with other forms of angina pectoris
[2023-12-07] MEDS: DUONEB 0.5 MG/3 MG (3 mL) NEB SCH (09:37)
--- NOTE | 2023-12-08 06:13 | RAD ---
EXAM:Right hip two views, AP pelvisHISTORY:Right hip painCOMPARISON:NoneFINDINGS:Pelvic bones and SI joints appear intact. Incidental note is made of mild osteitis pubis. Right hip joint is intact. No joint erosions are identified. Mild degenerative joint space narrowing is present. No fracture, lytic, or blastic lesion is identified. No periarticular soft tissue abnormalities identified.IMPRESSION:Mild degenerative joint space narrowing right hip jointTHIS IS AN ELECTRONICALLY VERIFIED FINAL REPORT12/08/2023 6:10 AM - Electronically signed by Jamison Edge MD
[2023-12-08 06:26] LABS: BASOPHILS % (AUTO) 0.4 % (0.2-1.0); EOSINOPHILS # (AUTO) 0.1 x10^3/uL (0.0-0.2); EOSINOPHILS % (AUTO) 1.7 % (0.9-2.9); HEMATOCRIT 34.2 % (36.0-47.0); HEMOGLOBIN 11.7 g/dL (12.0-16.0); LYMPHOCYTES # (AUTO) 1.5 X10^3/uL (1.3-2.9); LYMPHOCYTES % (AUTO) 31.4 % (21.0-51.0); MEAN CORPUSCULAR HGB CONC 34.1 g/dL (33.0-35.0); MEAN CORPUSCULAR VOLUME 93.6 fL (80.0-100.0); MEAN PLATELET VOLUME 8.7 fL (7.4-11.0); MONOCYTES # (AUTO) 0.6 x10^3/uL (0.3-0.8); NEUTROPHILS # (AUTO) 2.6 x10^3/uL (2.2-4.8); NEUTROPHILS % (AUTO) 54.5 % (42.0-75.0); PLATELET COUNT 143 X10^3/uL (150.0-450.0); RED BLOOD COUNT 3.65 X10^6/uL (3.5-5.4); RED CELL DISTRIBUTION WIDTH 13.6 % (11.6-16.5); WHITE BLOOD COUNT 4.7 X10^3/uL (3.6-10.0)
[2023-12-08 06:27] LABS: ALANINE AMINOTRANSFERASE 40 Units/L (12-78); ALBUMIN 2.4 g/dL (3.4-5.0); ALKALINE PHOSPHATASE 110 Units/L (46-116); ASPARTATE AMINO TRANSFERASE 40 Units/L (15-37); BLOOD UREA NITROGEN 7 mg/dL (7-18); CALCIUM 8.1 mg/dL (8.5-10.1); CARBON DIOXIDE 26.6 mmol/L (21-32); CHLORIDE 110 mmol/L (98-107); COR CA(FOR HYPOALB) 9.4 mg/dL (8.5-10.1); CREATININE 0.66 mg/dL (0.55-1.02); GLUCOSE 99 mg/dL (65-99); MAGNESIUM 1.8 mg/dL (2.0-2.9); POTASSIUM 3.9 mmol/L (3.5-5.1); SODIUM 144 mmol/L (136-145); TOTAL PROTEIN 5.8 g/dL (6.4-8.2); eGFR NON BLACK RACES > 60 (>60)
[2023-12-08 08:16] VITALS: BP 125/65; PULSE 69; RESP 20; TEMP 97.8; O2SAT 96
--- NOTE | 2023-12-08 16:41 | W.DIS.FURT ---
Summary of Discharge Discharge Summary of Date Date of Exam: 12/08/23 Admission Date Date of Admission: 12/05/23 Admission Diagnosis Hospital Course: Ms Carranza is a 77y/o female with multiple comorbidities including HTN, CAD, breast cancer presented with generalized weakness, fever and chills. In the ER, she was found to have elevated BP, SBP in the 190s. RSV, Flu and COVID were all negative. UA showed leukoestrase, no nitrites. Urine Cx was set up. She was started on empiric IV Rocephin. She was also having URI symptoms including cough and congestion. CXR did not show any acute process. She was started on bronchodilators. Patient's labs were monitored daily, electrolytes replaced as needed. She was ambulating in the room, did work with PT. Urine Cx was negative. She also had right hip XR due to pain which showed some degenerative disease. She was stable to be discharged home. She will f/u with PCP in 3-5 days. She will be discharged home on cefdinir and albuterol inhaler. Vital Signs: Vital Signs (72 hours) 12/05/23 14:48 12/05/23 14:54 12/05/23 15:00 Temperature 99.2 F Pulse Rate 85 87 86 Pulse Rate [Left Radial] Respiratory Rate 18 Blood Pressure 149/66 Blood Pressure [Left Arm] Blood Pressure [Right Arm] O2 Sat by Pulse Oximetry 95 95 95 Oxygen Delivery Method Room Air 12/05/23 15:00 12/05/23 15:15 12/05/23 15:30 Temperature Pulse Rate 86 86 Pulse Rate [Left Radial] Respiratory Rate Blood Pressure 146/66 Blood Pressure [Left Arm] Blood Pressure [Right Arm] O2 Sat by Pulse Oximetry 95 94 L Oxygen Delivery Method 12/05/23 15:30 12/05/23 15:49 12/05/23 16:00 Temperature Pulse Rate 88 85 Pulse Rate [Left Radial] Respiratory Rate Blood Pressure 143/61 Blood Pressure [Left Arm] Blood Pressure [Right Arm] O2 Sat by Pulse Oximetry 95 95 Oxygen Delivery Method 12/05/23 16:00 12/05/23 16:15 12/05/23 16:30 Temperature Pulse Rate 88 89 Pulse Rate [Left Radial] Respiratory Rate Blood Pressure 125/57 Blood Pressure [Left Arm] Blood Pressure [Right Arm] O2 Sat by Pulse Oximetry 95 95 Oxygen Delivery Method 12/05/23 16:30 12/05/23 16:45 12/05/23 17:00 Temperature Pulse Rate 88 91 H Pulse Rate [Left Radial] Respiratory Rate Blood Pressure 112/52 Blood Pressure [Left Arm] Blood Pressure [Right Arm] O2 Sat by Pulse Oximetry 96 94 L Oxygen Delivery Method 12/05/23 17:01 12/05/23 17:01 12/05/23 17:15 Temperature Pulse Rate 91 H 93 H Pulse Rate [Left Radial] Respiratory Rate Blood Pressure 163/70 Blood Pressure [Left Arm] Blood Pressure [Right Arm] O2 Sat by Pulse Oximetry 96 96 Oxygen Delivery Method 12/05/23 17:30 12/05/23 17:30 12/05/23 17:45 Temperature Pulse Rate 93 H 97 H Pulse Rate [Left Radial] Respiratory Rate Blood Pressure 177/74 Blood Pressure [Left Arm] Blood Pressure [Right Arm] O2 Sat by Pulse Oximetry 94 L 95 Oxygen Delivery Method 12/05/23 18:00 12/05/23 18:00 12/05/23 18:06 Temperature Pulse Rate 92 H 95 H Pulse Rate [Left Radial] Respiratory Rate Blood Pressure 199/84 Blood Pressure [Left Arm] Blood Pressure [Right Arm] O2 Sat by Pulse Oximetry 97 96 Oxygen Delivery Method 12/05/23 18:06 12/05/23 18:15 12/05/23 18:26 Temperature Pulse Rate 97 H Pulse Rate [Left Radial] Respiratory Rate Blood Pressure 190/80 151/65 Blood Pressure [Left Arm] Blood Pressure [Right Arm] O2 Sat by Pulse Oximetry 96 Oxygen Delivery Method 12/05/23 18:30 12/05/23 18:30 12/05/23 19:00 Temperature Pulse Rate Pulse Rate [Left Radial] Respiratory Rate Blood Pressure 121/61 121/61 127/58 Blood Pressure [Left Arm] Blood Pressure [Right Arm] O2 Sat by Pulse Oximetry Oxygen Delivery Method 12/05/23 19:00 12/05/23 19:31 12/05/23 20:01 Temperature Pulse Rate Pulse Rate [Left Radial] Respiratory Rate Blood Pressure 127/58 137/60 159/67 Blood Pressure [Left Arm] Blood Pressure [Right Arm] O2 Sat by Pulse Oximetry Oxygen Delivery Method 12/05/23 20:31 12/05/23 20:58 12/05/23 20:47 Temperature Pulse Rate Pulse Rate [Left Radial] Respiratory Rate Blood Pressure 192/75 133/61 Blood Pressure [Left Arm] Blood Pressure [Right Arm] O2 Sat by Pulse Oximetry Oxygen Delivery Method Room Air 12/05/23 22:03 12/05/23 21:35 12/06/23 00:00 Temperature 98.6 F 99.6 F Pulse Rate Pulse Rate [Left Radial] 89 98 H Respiratory Rate 19 21 Blood Pressure Blood Pressure [Left Arm] 134/60 128/61 Blood Pressure [Right Arm] O2 Sat by Pulse Oximetry 95 97 Oxygen Delivery Method Room Air Room Air Room Air 12/06/23 02:04 12/06/23 03:04 12/06/23 04:00 Temperature 99.1 F Pulse Rate Pulse Rate [Left Radial] 85 Respiratory Rate 20 20 18 Blood Pressure Blood Pressure [Left Arm] 122/60 Blood Pressure [Right Arm] O2 Sat by Pulse Oximetry 96 Oxygen Delivery Method Room Air 12/06/23 07:00 12/06/23 08:00 12/06/23 10:51 Temperature 98.1 F Pulse Rate Pulse Rate [Left Radial] 77 Respiratory Rate 20 20 Blood Pressure Blood Pressure [Left Arm] 139/63 Blood Pressure [Right Arm] O2 Sat by Pulse Oximetry 92 L Oxygen Delivery Method Room Air Room Air 12/06/23 12:00 12/06/23 16:00 12/06/23 19:00 Temperature 98.9 F 97.4 F L Pulse Rate Pulse Rate [Left Radial] 73 78 Respiratory Rate 20 20 Blood Pressure Blood Pressure [Left Arm] Blood Pressure [Right Arm] 140/64 139/65 O2 Sat by Pulse Oximetry 99 98 Oxygen Delivery Method Room Air Room Air Room Air 12/06/23 20:00 12/06/23 20:41 12/06/23 20:42 Temperature 98.0 F Pulse Rate 67 Pulse Rate [Left Radial] 72 Respiratory Rate 20 Blood Pressure Blood Pressure [Left Arm] 136/64 Blood Pressure [Right Arm] O2 Sat by Pulse Oximetry 96 97 Oxygen Delivery Method Room Air Room Air 12/06/23 23:10 12/07/23 00:00 12/07/23 00:10 Temperature 98.6 F Pulse Rate Pulse Rate [Left Radial] 79 Respiratory Rate 20 20 20 Blood Pressure Blood Pressure [Left Arm] 140/65 Blood Pressure [Right Arm] O2 Sat by Pulse Oximetry 97 Oxygen Delivery Method Room Air 12/07/23 04:00 12/07/23 08:27 12/07/23 08:00 Temperature 98.2 F 98.3 F Pulse Rate Pulse Rate [Left Radial] 63 65 Respiratory Rate 20 18 Blood Pressure Blood Pressure [Left Arm] 149/67 162/72 Blood Pressure [Right Arm] O2 Sat by Pulse Oximetry 98 96 Oxygen Delivery Method Room Air Room Air Room Air 12/07/23 07:00 12/07/23 12:00 12/07/23 16:00 Temperature 97.9 F 98.3 F Pulse Rate Pulse Rate [Left Radial] 61 66 Respiratory Rate 18 18 Blood Pressure Blood Pressure [Left Arm] 163/67 151/69 Blood Pressure [Right Arm] O2 Sat by Pulse Oximetry 98 97 Oxygen Delivery Method Room Air Room Air Room Air 12/07/23 19:00 12/07/23 20:00 12/07/23 23:48 Temperature 98.0 F 97.8 F Pulse Rate Pulse Rate [Left Radial] 66 64 Respiratory Rate 20 18 Blood Pressure Blood Pressure [Left Arm] 160/69 150/65 Blood Pressure [Right Arm] O2 Sat by Pulse Oximetry 98 97 Oxygen Delivery Method Room Air Room Air Room Air 12/07/23 22:15 12/07/23 22:15 12/08/23 03:50 Temperature 98.1 F Pulse Rate 62 Pulse Rate [Left Radial] 65 Respiratory Rate 18 Blood Pressure Blood Pressure [Left Arm] 134/61 Blood Pressure [Right Arm] O2 Sat by Pulse Oximetry 96 97 Oxygen Delivery Method Room Air Room Air 12/08/23 05:40 12/08/23 07:00 12/08/23 08:00 Temperature 97.8 F Pulse Rate 62 Pulse Rate [Left Radial] 69 Respiratory Rate 20 Blood Pressure Blood Pressure [Left Arm] Blood Pressure [Right Arm] 125/65 O2 Sat by Pulse Oximetry 97 96 Oxygen Delivery Method Room Air Room Air Labs: Laboratory Last Values WBC 4.7 X10^3/uL (3.6-10.0) 12/08/23 05:40 RBC 3.65 X10^6/uL (3.5-5.4) 12/08/23 05:40 Hgb 11.7 g/dL (12.0-16.0) L 12/08/23 05:40 Hct 34.2 % (36.0-47.0) L 12/08/23 05:40 MCV 93.6 fL (80.0-100.0) 12/08/23 05:40 MCH 32.0 pg (27.0-34.0) 12/08/23 05:40 MCHC 34.1 g/dL (33.0-35.0) 12/08/23 05:40 RDW 13.6 % (11.6-16.5) 12/08/23 05:40 Plt Count 143 X10^3/uL (150.0-450.0) L 12/08/23 05:40 Plt Count Comment Adequate (ADEQUATE) 12/05/23 14:25 MPV 8.7 fL (7.4-11.0) 12/08/23 05:40 Neut % (Auto) 54.5 % (42.0-75.0) 12/08/23 05:40 Lymph % (Auto) 31.4 % (21.0-51.0) 12/08/23 05:40 [place] % (Auto) 12.0 % (0.0-13.0) 12/08/23 05:40 Eos % (Auto) 1.7 % (0.9-2.9) 12/08/23 05:40 Baso % (Auto) 0.4 % (0.2-1.0) 12/08/23 05:40 Neut # (Auto) 2.6 x10^3/uL (2.2-4.8) 12/08/23 05:40 Lymph # (Auto) 1.5 X10^3/uL (1.3-2.9) 12/08/23 05:40 [place] # (Auto) 0.6 x10^3/uL (0.3-0.8) 12/08/23 05:40 Eos # (Auto) 0.1 x10^3/uL (0.0-0.2) 12/08/23 05:40 Baso # (Auto) 0.0 X10^3/uL (0.0-0.1) 12/08/23 05:40 Absolute Nucleated RBC 0.2 /100WBC 12/08/23 05:40 Total Counted 100 12/05/23 14:25 Neutrophils % (Manual) 89 % (39-76) H 12/05/23 14:25 Lymphocytes % (Manual) 8 % (13-43) L 12/05/23 14:25 Monocytes % (Manual) 3 % (4-9) L 12/05/23 14:25 Plt Morphology Comment Normal (NORMAL) 12/05/23 14:25 RBC Morphology Normal (NORMAL) 12/05/23 14:25 Sodium 144 mmol/L (136-145) 12/08/23 05:40 Corrected Sodium TNP 12/08/23 05:40 Potassium 3.9 mmol/L (3.5-5.1) 12/08/23 05:40 Chloride 110 mmol/L (98-107) H 12/08/23 05:40 Carbon Dioxide 26.6 mmol/L (21-32) 12/08/23 05:40 BUN 7 mg/dL (7-18) 12/08/23 05:40 Creatinine 0.66 mg/dL (0.55-1.02) 12/08/23 05:40 Est GFR (MDRD) Af Amer > 60 (>60) 12/08/23 05:40 Est GFR (MDRD) Non-Af > 60 (>60) 12/08/23 05:40 Glucose 99 mg/dL (65-99) 12/08/23 05:40 Calcium 8.1 mg/dL (8.5-10.1) L 12/08/23 05:40 Corrected Calcium 9.4 mg/dL (8.5-10.1) 12/08/23 05:40 Magnesium 1.8 mg/dL (2.0-2.9) L 12/08/23 05:40 Total Bilirubin 0.40 mg/dL (0.2-1.0) 12/08/23 05:40 AST 40 Units/L (15-37) H 12/08/23 05:40 ALT 40 Units/L (12-78) 12/08/23 05:40 Alkaline Phosphatase 110 Units/L (46-116) 12/08/23 05:40 Total Protein 5.8 g/dL (6.4-8.2) L 12/08/23 05:40 Albumin 2.4 g/dL (3.4-5.0) L 12/08/23 05:40 Globulin 3.4 g/dL (2.5-4.5) 12/08/23 05:40 Albumin/Globulin Ratio 0.7 Ratio (1.1-2.1) L 12/08/23 05:40 Amylase 41 Units/L (25-115) 12/05/23 14:25 Lipase 15 Units/L (16-77) L 12/05/23 14:25 Specimen Type Clean catch urine 12/05/23 18:28 Urine Color [place] (YELLOW) 12/05/23 18:28 Urine Appearance Clear (CLEAR) 12/05/23 18:28 Urine pH 7.0 (5.0 - 8.0) 12/05/23 18:28 Ur Specific [place] 1.010 (1.000-1.030) 12/05/23 18:28 Urine Protein Negative (NEGATIVE) 12/05/23 18:28 Urine Glucose (UA) Negative (NEGATIVE) 12/05/23 18:28 Urine Ketones 4+ (NEGATIVE) 12/05/23 18:28 Urine Blood Negative (NEGATIVE) 12/05/23 18:28 Urine Nitrite Negative (NEGATIVE) 12/05/23 18:28 Urine Bilirubin Negative (NEGATIVE) 12/05/23 18:28 Urine Urobilinogen 2+ (NORMAL) 12/05/23 18:28 Ur Leukocyte Esterase 1+ (NEGATIVE) 12/05/23 18:28 Urine RBC 0-2 /HPF (0-3) 12/05/23 18:28 Urine WBC 0-2 /HPF (0-5) 12/05/23 18:28 Ur Squamous Epith Cells Moderate /HPF (NEGATIVE) 12/05/23 18:28 Urine Bacteria Trace /HPF (NEGATIVE) 12/05/23 18:28 Urine Mucus Moderate /HPF (NEGATIVE) 12/05/23 18:28 Ur Culture Indicated? No/not indicated 12/05/23 18:28 SARS-CoV-2 (PCR) Negative (NEGATIVE) 12/05/23 16:18 Influenza Type A (PCR) Negative (NEGATIVE) 12/05/23 16:18 Influenza Type B (PCR) Negative (NEGATIVE) 12/05/23 16:18 RSV (PCR) Negative (NEGATIVE) 12/05/23 16:18 Reason For Visit: FAILED OUTPATIENT TREATMENT, WEAKNESS, UTI Discharge Diagnosis All Active Problems (Updated 05/19/19 @ 17:41 by Deonte New) Right hip pain (Acute) Viral respiratory illness (Acute) Community acquired pneumonia (Acute) Malaise (Acute) CKD (chronic kidney disease) stage 3, GFR 30-59 ml/min (Acute) Encounter for medical screening examination (Acute) UTI (urinary tract infection) (Acute) Abdominal pain (Acute) GERD (gastroesophageal reflux disease) (Chronic) Hypothyroidism (Chronic) Hypertension (Chronic) Gout (Chronic) CAD (coronary artery disease) (Chronic) Constipation (Chronic) Hyperlipidemia (Chronic) H/O heart artery stent (Chronic) Plan of Treatment: Continue with present treatment and follow up plan. Pt is to keep follow up appointment as instructed and take medications as ordered. Discharge Medications Discharge Medications: hydrocodone Allergy (Unknown, Verified 12/05/23 15:06) phenyltoloxamine Allergy (Unknown, Verified 12/05/23 15:06) CONTINUE taking the following medications ascorbic acid (vitamin C) 500 mg tablet 1,000 mg PO QDAY 12/05/23 [History] aspirin 81 mg tablet,delayed release 81 mg PO QDAY 12/05/23 [History] dicyclomine 10 mg capsule 10 mg PO Q6H PRN pain 12/05/23 [History] ergocalciferol (vitamin D2) 1,250 mcg (50,000 unit) capsule 1,250 mcg PO QWEEK 12/05/23 [History] levothyroxine 75 mcg tablet 75 mcg PO QDAY 12/05/23 [History] metoprolol tartrate 25 mg tablet 25 mg PO BID 12/05/23 [History] montelukast 10 mg tablet 10 mg PO QDAY 12/05/23 [History] ranolazine 500 mg tablet,extended release,12 hr 500 mg PO BID 12/05/23 [History] New Prescriptions albuterol sulfate 90 mcg/actuation aerosol inhaler 2 puff inhalation Q6H PRN #6.7 grams 12/08/23 [Rx] cefdinir 300 mg capsule 300 mg PO BID 5 days #10 caps 12/08/23 [Rx] Discharge Disposition Discharge Disposition: Home Discharge Condition: Stable Discharge Plan Discharge Plan Hospital Course: Ms Carranza is a 77y/o female with multiple comorbidities including HTN, CAD, breast cancer presented with generalized weakness, fever and chills. In the ER, she was found to have elevated BP, SBP in the 190s. RSV, Flu and COVID were all negative. UA showed leukoestrase, no nitrites. Urine Cx was set up. She was started on empiric IV Rocephin. She was also having URI symptoms including cough and congestion. CXR did not show any acute process. She was started on bronchodilators. Patient's labs were monitored daily, electrolytes replaced as needed. She was ambulating in the room, did work with PT. Urine Cx was negative. She also had right hip XR due to pain which showed some degenerative disease. She was stable to be discharged home. She will f/u with PCP in 3-5 days. She will be discharged home on cefdinir and albuterol inhaler. Patient Disposition: HOME, SELF-CARE Condition: Stable Health Concerns: Post Hospitalization: new medications and changes needed to prevent readmission or further decline. Pt educated and given instructions on all concerns. Plan of Treatment: Continue with present treatment and follow up plan. Pt is to keep follow up appointment as instructed and take medications as ordered. Prescription drug monitoring program results: PDMP reviewed and no concerns identified Prescriptions: New cefdinir 300 mg capsule 300 mg PO BID 5 Days Qty: 10 0RF albuterol sulfate 90 mcg/actuation HFA aerosol inhaler 2 puff inhalation Q6H PRNQty: 6.7 0RF Continued dicyclomine 10 mg capsule 10 mg PO Q6H PRN (Reason: pain) levothyroxine 75 mcg tablet 75 mcg PO QDAY ergocalciferol (vitamin D2) 1,250 mcg (50,000 unit) Capsule 1,250 mcg PO QWEEK ranolazine 500 mg Tablet Extended Release 12 Hr 500 mg PO BID aspirin 81 mg Tablet,Delayed Release (Dr/Ec) 81 mg PO QDAY ascorbic acid (vitamin C) 500 mg Tablet 1,000 mg PO QDAY montelukast 10 mg Tablet 10 mg PO QDAY metoprolol tartrate 25 mg Tablet 25 mg PO BID Follow ups/Referrals Follow ups/Referrals: ROSHNI TREJO [Primary Care Provider] - 3 days Instructions Stand Alone Forms: Excuse From Work or School, Post Hospital Follow Up Care
== END 2023-12-08 12:05 | disposition home or self-care (01) | DRG 690 ==
LOC: MED/SURG 14:10 → ER 14:10 → MED/SURG 21:39
PROVIDERS: ADMIT Internal Medicine; ATTEND Internal Medicine
DX: E03.8 Other specified hypothyroidism; E83.42 Hypomagnesemia; R10.84 Generalized abdominal pain; I25.118 Atherosclerotic heart disease of native coronary artery with other forms of angina pectoris; I10 Essential (primary) hypertension; K80.80 Other cholelithiasis without obstruction; Z20.822 Contact with and (suspected) exposure to COVID-19; Z85.3 Personal history of malignant neoplasm of breast; J20.8 Acute bronchitis due to other specified organisms; M25.551 Pain in right hip; K57.30 Diverticulosis of large intestine without perforation or abscess without bleeding; N30.00 Acute cystitis without hematuria; R53.81 Other malaise; K21.9 Gastro-esophageal reflux disease without esophagitis